=== PATIENT | male | born 1950 | race Caucasian/White ===

== ENCOUNTER 2018-05-19 13:49 | Inpatient (IN) | payer MEDICARE, OTHER ==
[2018-05-19 14:11] LABS: % BASOPHILS 0.4 % (0.0-2.0); % EOSINOPHILS 0.4 % (0.0-5.0); % LYMPHOCYTES 14.7 % (20.0-50.0); % NEUTROPHILS 75.5 % (40.0-80.0); HEMATOCRIT 45.1 % (41.0-60); HEMOGLOBIN 14.9 gm/dL (12-16); LYMPHOCYTE ABSOLUTE 1.4 Th/cmm (1.5-3.0); MEAN CELL VOLUME 91.5 fl (80-99); MEAN CORPUSCULAR HEMOGLOBIN 30.3 pg (27.0-31.0); MEAN CORPUSCULAR HGB CONC 33.1 pg (28.0-36.0); MEAN PLATELET VOLUME 7.5 fl; MONOCYTE ABSOLUTE 0.9 Th/cmm (0.3-1.0); NEUTROPHILE ABSOLUTE 7.5 Th/cmm (1.8-8.0); PLATELET COUNT 332 Th/cmm (150-400); RED BLOOD COUNT 4.93 Mil/cmm (3.80-5.80); WHITE BLOOD COUNT 9.8 Th/cmm (4.8-10.8)
[2018-05-19 14:24] LABS: URINE SOURCE CLEAN C
[2018-05-19 14:26] LABS: URINE BILIRUBIN SMALL (NEGATIVE); URINE BLOOD SMALL (NEGATIVE); URINE GLUCOSE (UA) NEGATIVE (NEGATIVE); URINE KETONE NEGATIVE (NEGATIVE); URINE LEUKOCYTE ESTERASE TRACE (NEGATIVE); URINE MICROSCOPIC INDICATED? YES; URINE NITRATE NEGATIVE (NEGATIVE); URINE PH 5.5 (4.6 - 8.0); URINE PROTEIN 100 mg/dL (NEGATIVE); URINE UROBILINOGEN 0.2 E.U./dL (0.2 - 1.0)
[2018-05-19 14:28] LABS: URINE CLARITY HAZY (CLEAR); URINE COLOR YELLOW
[2018-05-19 14:34] LABS: URINE EPITHELIAL CELLS FEW /lpf (FEW)
[2018-05-19 14:35] LABS: URINE BACTERIA 3+ /hpf (NONE SEEN); URINE COARSE GRANULAR CAST 0-2 /lpf (NONE SEEN); URINE FINE GRANULAR CAST 0-2 /lpf (NONE SEEN)
[2018-05-19 14:36] LABS: ALB/GLOB RATIO 1.5 (1.0-1.8); ALBUMIN 4.4 gm/dL (4.2-5.5); ALKALINE PHOSPHATASE 49 U/L (34-104); ANION GAP 15.7 (7.0-16.0); BILIRUBIN,TOTAL 0.8 mg/dL (0.3-1.0); BUN - UREA NITROGEN 18 mg/dL (7-25); CALCIUM SERUM 9.5 mg/dL (8.6-10.3); CHLORIDE 104 mEq/L (98-107); CREATININE - SERUM 1.2 mg/dL (0.7-1.3); GFR AFRICAN-AMERICAN > 60.0 ml/min (>90); GFR NON AFRICAN-AMERICAN > 60.0 ml/min; GLUCOSE 165 mg/dL (70-105); MAGNESIUM 2.1 mg/dL (1.9-2.7); PHOSPHOROUS 2.3 mg/dL (2.5-5.0); POTASSIUM SERUM 3.7 mEq/L (3.5-5.1); SGOT 16 U/L (13-39); SGPT/ALT 10 U/L (7-52); SODIUM SERUM 138 mEq/L (136-145); TOTAL PROTEIN,SERUM 7.4 gm/dL (6.0-8.3)
[2018-05-19] MEDS ORDERED: Lactated Ringer 1,000 ML IV ONE (14:36)
[2018-05-19] MEDS ORDERED: Sodium Phos / Potassium Phos 1.25 GM PACK PO ONE (14:44)
[2018-05-19 14:50] LABS: AMPHETAMINE URINE NEGATIVE (NEGATIVE); BARBITURATES URINE NEGATIVE (NEGATIVE); BENZODIAZEPINES QUAL URINE NEGATIVE (NEGATIVE); CANNABINOID THC NEGATIVE (NEGATIVE); COCAINE METABOLITE QUAL URINE NEGATIVE (NEGATIVE); METHADONE URINE NEGATIVE (NEGATIVE); METHAMPHETAMINES QUAL URINE NEGATIVE (NEGATIVE); OPIATES (MORPHINE) QUAL. URINE NEGATIVE (NEGATIVE); PHENCYCLIDINE (PCP) URINE NEGATIVE (NEGATIVE); TRICYCLICS (TCA) QUAL. URINE NEGATIVE (NEGATIVE)
[2018-05-19] MEDS ORDERED: Piperacillin Sodium/Tazobact 3.375 gm Vial IV ONE (15:16)
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
[2018-05-19 18:42] VITALS: BP 121/65
[2018-05-19] MEDS ORDERED: Magnesium Hydroxide (MOM) 30 mL UDC PO PRN (18:42)
[2018-05-19] MEDS ORDERED: Maalox 30 mL Cup PO PRN (18:42)
[2018-05-19 19:03] LABS: CHOLESTEROL 186 mg/dL (<200); HDL -HIGH DENSITY LIPOPROTEIN 57 mg/dL (23-92); TRIGLYCERIDES 65 mg/dL (<150)
--- NOTE | 2018-05-20 08:34 | History and Physical ---
History of Present Illness - HPI Chief Complaint: Gravelly disable HPI: Patient was put in 5150 by police due to be gravelly disable. Vital Signs: Last Vital Signs Temp 97.8 F 05/20/18 06:44 Pulse 77 05/20/18 06:44 Resp 19 05/20/18 06:44 BP 117/71 05/20/18 06:44 Pulse Ox 97 05/20/18 06:44 Past Medical History Cardiovascular: Report: No Pertinent Hx Pulmonary: Report: No Pertinent Hx SPECIAL EDUCATION DIRECTOR: Report: No Pertinent Hx GI: Report: No Pertinent Hx Psych: Report: No Pertinent Hx Musculoskeletal: Report: No Pertinent Hx Rheumatologic: Report: No pertinent Hx Infectious Disease: Report: No Pertinent Hx Renal/: Report: No Pertinent Hx Endocrine: Report: No Pertinent Hx Dermatology: Report: No Pertinent Hx - Past Surgical History Past Surgical History: No pertinent Hx Family Medical History - Family Member Mother History Unknown: Yes Social History Smoke: No Alcohol: None Drugs: None Lives: Alone Domestic Violence: Negative - Medications Home Medications: Home Medication Medication Instructions Recorded Type Cyanocobalamin (Vitamin B-12) SL DAILY 05/20/18 History [B-12] Memantine HCl [Namenda Xr] 7 mg PO DAILY 05/20/18 History Mirtazapine [Remeron] PO HS 05/20/18 History - Allergies Allergies/Adverse Reactions: Allergies Allergy/AdvReac Type Severity Reaction Status Date / Time No Known Allergies Allergy Verified 05/19/18 14:02 Review of Systems - Review of Systems Constitutional: Report: No Significant Eyes: Report: No Significant ENT: Report: No Significant Respiratory: Report: No Significant Cardiovascular: Report: No Significant Gastrointestinal: Report: No Significant Genitourinary: Report: No Significant Musculoskeletal: Report: No Significant Skin: Report: No Significant Neurological: Report: No Significant Physical Exam - Physical Exam HEENT: Report: Ears Nose Throat within normal limits Neck: Report: Within normal limits Cardiovascular Systems: Report: Regular, Rate and Rhythm Respiratory: Report: Breath Sounds are within normal limits Abdomen: Report: Non-tender to palpation Back: Report: Inspection of back is within normal limits. Extremities: Report: Non-tender to palpation. Skin: Report: Color of skin is within normal limits, Warm Neuro/Psych: Report: Mood affect is within normal limits - Lab Results All Lab Results last 24 hours: Laboratory Results - last 24 hr 11/19/18 11/19/18 11/19/18 13:30 14:06 14:06 WBC 9.8 RBC 4.93 Hgb 14.9 Hct 45.1 MCV 91.5 MCH 30.3 MCHC Differential 33.1 RDW 13.0 Plt Count 332 MPV 7.5 Neutrophils % 75.5 Lymphocytes % 14.7 L Monocytes % 9.0 Eosinophils % 0.4 Basophils % 0.4 Sodium 138 Potassium 3.7 Chloride 104 Carbon Dioxide 22.0 Anion Gap 15.7 BUN 18 Creatinine 1.2 Est GFR ( Amer) > 60.0 Est GFR (Non-Af Amer) > 60.0 BUN/Creatinine Ratio 15.0 Glucose 165 H Calcium 9.5 Phosphorus 2.3 L Magnesium 2.1 Total Bilirubin 0.8 AST 16 ALT 10 Alkaline Phosphatase 49 Troponin I Total Protein 7.4 Albumin 4.4 Globulin 3.0 Albumin/Globulin Ratio 1.5 Triglycerides Cholesterol LDL Cholesterol Direct HDL Cholesterol TSH Urine Source Urine Color Urine Clarity Urine pH Ur Specific [place] Urine Protein Urine Glucose (UA) Urine Ketones Urine Blood Urine Nitrate Urine Bilirubin Urine Urobilinogen Ur Leukocyte Esterase Urine RBC Urine WBC Ur Epithelial Cells Urine Bacteria Fine Granular Casts Coarse Granular Casts Urine Opiates Screen NEGATIVE Urine Methadone Screen NEGATIVE Ur Barbiturates Screen NEGATIVE Ur Tricyclics Screen NEGATIVE Ur Phencyclidine Scrn NEGATIVE Amphetamines Screen NEGATIVE U Methamphetamines Scrn NEGATIVE U Benzodiazepines Scrn NEGATIVE U Cocaine Metab Screen NEGATIVE U Cannabinoids Screen NEGATIVE Ethyl Alcohol < 10 05/19/18 05/19/18 05/19/18 14:06 14:06 14:06 WBC RBC Hgb Hct MCV MCH MCHC Differential RDW Plt Count MPV Neutrophils % Lymphocytes % Monocytes % Eosinophils % Basophils % Sodium Potassium Chloride Carbon Dioxide Anion Gap BUN Creatinine Est GFR ( Amer) Est GFR (Non-Af Amer) BUN/Creatinine Ratio Glucose Calcium Phosphorus Magnesium Total Bilirubin AST ALT Alkaline Phosphatase Troponin I 0.03 Total Protein Albumin Globulin Albumin/Globulin Ratio Triglycerides 65 Cholesterol 186 LDL Cholesterol Direct 140 HDL Cholesterol 57 TSH 1.79 Urine Source Urine Color Urine Clarity Urine pH Ur Specific [place] Urine Protein Urine Glucose (UA) Urine Ketones Urine Blood Urine Nitrate Urine Bilirubin Urine Urobilinogen Ur Leukocyte Esterase Urine RBC Urine WBC Ur Epithelial Cells Urine Bacteria Fine Granular Casts Coarse Granular Casts Urine Opiates Screen Urine Methadone Screen Ur Barbiturates Screen Ur Tricyclics Screen Ur Phencyclidine Scrn Amphetamines Screen U Methamphetamines Scrn U Benzodiazepines Scrn U Cocaine Metab Screen U Cannabinoids Screen Ethyl Alcohol 05/19/18 14:15 WBC RBC Hgb Hct MCV MCH MCHC Differential RDW Plt Count MPV Neutrophils % Lymphocytes % Monocytes % Eosinophils % Basophils % Sodium Potassium Chloride Carbon Dioxide Anion Gap BUN Creatinine Est GFR ( Amer) Est GFR (Non-Af Amer) BUN/Creatinine Ratio Glucose Calcium Phosphorus Magnesium Total Bilirubin AST ALT Alkaline Phosphatase Troponin I Total Protein Albumin Globulin Albumin/Globulin Ratio Triglycerides Cholesterol LDL Cholesterol Direct HDL Cholesterol TSH Urine Source CLEAN C Urine Color YELLOW Urine Clarity HAZY Urine pH 5.5 Ur Specific [place] >= 1.030 Urine Protein 100 H Urine Glucose (UA) NEGATIVE Urine Ketones NEGATIVE Urine Blood SMALL H Urine Nitrate NEGATIVE Urine Bilirubin SMALL H Urine Urobilinogen 0.2 Ur Leukocyte Esterase TRACE H Urine RBC 5-10 H Urine WBC 10-25 H Ur Epithelial Cells FEW Urine Bacteria 3+ H Fine Granular Casts 0-2 H Coarse Granular Casts 0-2 H Urine Opiates Screen Urine Methadone Screen Ur Barbiturates Screen Ur Tricyclics Screen Ur Phencyclidine Scrn Amphetamines Screen U Methamphetamines Scrn U Benzodiazepines Scrn U Cocaine Metab Screen U Cannabinoids Screen Ethyl Alcohol - Assessment Assessment: Current Active Problems Problem Status Onset 51/50 STATUS Acute Patient is awake, alert, calm, in no acute distress. 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 - Plan Plan: Patient is follow by Psychiatry. Bactrim is started for UTI.
[2018-05-20] MEDS: Sulfamethoxazole/TMP 800/160mg Tab PO SCH ×2 (09:24→16:35)
[2018-05-20] MEDS: Multivitamin Tab PO SCH (09:24)
[2018-05-21] MEDS: Multivitamin Tab PO SCH (08:38)
[2018-05-21] MEDS: Sulfamethoxazole/TMP 800/160mg Tab PO SCH ×2 (08:38→16:50)
--- NOTE | 2018-05-21 08:55 | General Progress Note ---
Subjective - Review of Systems Service Date: 05/21/18 Subjective: I am fine Objective - Results Result Diagrams: 05/19/18 14:06 05/19/18 14:06 Recent Labs: Laboratory Last Values WBC 9.8 Th/cmm (4.8-10.8) 05/19/18 14:06 RBC 4.93 Mil/cmm (3.80-5.80) 05/19/18 14:06 Hgb 14.9 gm/dL (12-16) 05/19/18 14:06 Hct 45.1 % (41.0-60) 05/19/18 14:06 MCV 91.5 fl (80-99) 05/19/18 14:06 MCH 30.3 pg (27.0-31.0) 05/19/18 14:06 MCHC Differential 33.1 pg (28.0-36.0) 05/19/18 14:06 RDW 13.0 % (11.5-20.0) 05/19/18 14:06 Plt Count 332 Th/cmm (150-400) 05/19/18 14:06 MPV 7.5 fl 05/19/18 14:06 Neutrophils % 75.5 % (40.0-80.0) 05/19/18 14:06 Lymphocytes % 14.7 % (20.0-50.0) L 05/19/18 14:06 Monocytes % 9.0 % (2.0-10.0) 05/19/18 14:06 Eosinophils % 0.4 % (0.0-5.0) 05/19/18 14:06 Basophils % 0.4 % (0.0-2.0) 05/19/18 14:06 Sodium 138 mEq/L (136-145) 05/19/18 14:06 Potassium 3.7 mEq/L (3.5-5.1) 05/19/18 14:06 Chloride 104 mEq/L (98-107) 05/19/18 14:06 Carbon Dioxide 22.0 mEq/L (21.0-31.0) 05/19/18 14:06 Anion Gap 15.7 (7.0-16.0) 05/19/18 14:06 BUN 18 mg/dL (7-25) 05/19/18 14:06 Creatinine 1.2 mg/dL (0.7-1.3) 05/19/18 14:06 Est GFR ( Amer) > 60.0 ml/min (>90) 05/19/18 14:06 Est GFR (Non-Af Amer) > 60.0 ml/min 05/19/18 14:06 BUN/Creatinine Ratio 15.0 05/19/18 14:06 Glucose 165 mg/dL (70-105) H 05/19/18 14:06 Calcium 9.5 mg/dL (8.6-10.3) 05/19/18 14:06 Phosphorus 2.3 mg/dL (2.5-5.0) L 05/19/18 14:06 Magnesium 2.1 mg/dL (1.9-2.7) 05/19/18 14:06 Total Bilirubin 0.8 mg/dL (0.3-1.0) 05/19/18 14:06 AST 16 U/L (13-39) 05/19/18 14:06 ALT 10 U/L (7-52) 05/19/18 14:06 Alkaline Phosphatase 49 U/L (34-104) 05/19/18 14:06 Troponin I 0.03 ng/mL (0.01-0.05) 05/19/18 14:06 Total Protein 7.4 gm/dL (6.0-8.3) 05/19/18 14:06 Albumin 4.4 gm/dL (4.2-5.5) 05/19/18 14:06 Globulin 3.0 gm/dL 05/19/18 14:06 Albumin/Globulin Ratio 1.5 (1.0-1.8) 05/19/18 14:06 Triglycerides 65 mg/dL (<150) 05/19/18 14:06 Cholesterol 186 mg/dL (<200) 05/19/18 14:06 LDL Cholesterol Direct 140 mg/dL (75-193) 05/19/18 14:06 HDL Cholesterol 57 mg/dL (23-92) 05/19/18 14:06 TSH 1.79 uIU/ml (0.34-5.60) 05/19/18 14:06 Urine Source CLEAN C 05/19/18 14:15 Urine Color YELLOW 05/19/18 14:15 Urine Clarity HAZY (CLEAR) 05/19/18 14:15 Urine pH 5.5 (4.6 - 8.0) 05/19/18 14:15 Ur Specific [place] >= 1.030 (1.005-1.030) 05/19/18 14:15 Urine Protein 100 mg/dL (NEGATIVE) H 05/19/18 14:15 Urine Glucose (UA) NEGATIVE mg/dL (NEGATIVE) 05/19/18 14:15 Urine Ketones NEGATIVE mg/dL (NEGATIVE) 05/19/18 14:15 Urine Blood SMALL (NEGATIVE) H 05/19/18 14:15 Urine Nitrate NEGATIVE (NEGATIVE) 05/19/18 14:15 Urine Bilirubin SMALL (NEGATIVE) H 05/19/18 14:15 Urine Urobilinogen 0.2 E.U./dL (0.2 - 1.0) 05/19/18 14:15 Ur Leukocyte Esterase TRACE (NEGATIVE) H 05/19/18 14:15 Urine RBC 5-10 /hpf (0-5) H 05/19/18 14:15 Urine WBC 10-25 /hpf (0-5) H 05/19/18 14:15 Ur Epithelial Cells FEW /lpf (FEW) 05/19/18 14:15 Urine Bacteria 3+ /hpf (NONE SEEN) H 05/19/18 14:15 Fine Granular Casts 0-2 /lpf (NONE SEEN) H 05/19/18 14:15 Coarse Granular Casts 0-2 /lpf (NONE SEEN) H 05/19/18 14:15 Urine Opiates Screen NEGATIVE (NEGATIVE) 05/19/18 13:30 Urine Methadone Screen NEGATIVE (NEGATIVE) 05/19/18 13:30 Ur Barbiturates Screen NEGATIVE (NEGATIVE) 05/19/18 13:30 Ur Tricyclics Screen NEGATIVE (NEGATIVE) 05/19/18 13:30 Ur Phencyclidine Scrn NEGATIVE (NEGATIVE) 05/19/18 13:30 Amphetamines Screen NEGATIVE (NEGATIVE) 05/19/18 13:30 U Methamphetamines Scrn NEGATIVE (NEGATIVE) 05/19/18 13:30 U Benzodiazepines Scrn NEGATIVE (NEGATIVE) 05/19/18 13:30 U Cocaine Metab Screen NEGATIVE (NEGATIVE) 05/19/18 13:30 U Cannabinoids Screen NEGATIVE (NEGATIVE) 05/19/18 13:30 Ethyl Alcohol < 10 mg/dL (0-10) 05/19/18 14:06 - Physical Exam Vitals and I&O: Vital Signs Temp 98.2 F 05/21/18 06:28 Pulse 77 05/21/18 06:28 Resp 20 05/21/18 06:28 BP 122/62 05/21/18 06:28 Pulse Ox 98 05/21/18 06:28 Intake & Output 05/20/18 05/21/18 05/21/18 18:59 06:59 18:59 Intake Total 1200 420 Balance 1200 420 Weight (lbs) 59.421 kg Intake: Oral 1200 420 Other: # Voids 4 2 # Bowel Movements 1 0 Weight Source Bedscale Active Medications: Current Medications Acetaminophen (Tylenol) 650 mg PO Q4HR PRN PRN Reason: Mild Pain 1-3 / Temp above 100 Stop: 07/18/18 18:41 Al Hydrox/Mg Hydrox/Simethicone (Maalox) 30 ml PO Q4HR PRN PRN Reason: GI DISTRESS Stop: 07/18/18 18:41 Lorazepam (Ativan) 0.5 mg PO Q4HR PRN; Protocol PRN Reason: Agitation Stop: 06/18/18 18:41 Magnesium Hydroxide (Milk Of Magnesia) 30 ml PO HS PRN PRN Reason: Constipation Mirtazapine (Remeron) 15 mg PO HS KOMAL; Protocol Stop: 07/19/18 20:59 Last Admin: 05/20/18 21:17 Dose: Not Given Multivitamins/Vitamin C (Theragran) 1 tab PO DAILY KOMAL Stop: 07/19/18 08:59 Last Admin: 05/21/18 08:38 Dose: 1 tab Trimethoprim/Sulfamethoxazole (Bactrim Ds) 1 tab PO BID KOMAL Stop: 07/19/18 08:59 Last Admin: 05/21/18 08:38 Dose: 1 tab Zolpidem Tartrate (Ambien) 5 mg PO HS PRN PRN Reason: Insomnia Stop: 07/18/18 18:41 General: Alert, No acute distress HEENT: Atraumatic Neck: Supple Cardiovascular: Regular rate Abdomen: Bowel sounds Extremities: Other (No edema) Neurological: Other (Non ambulatory) Skin: Other Psych/Mental Status: Other (Confused) Assessment/Plan - Problem List Patient Problems: All Active Problems 51/50 STATUS (Acute) - Assessment Assessment: Current Active Problems Problem Status Onset 5150 STATUS Acute Patient is awake, alert, calm, in no acute distress. 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 - Plan Plan: Patient is follow by Psychiatry. Bactrim is started for UTI.
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
--- NOTE | 2018-05-21 21:26 | Progress Notes ---
DATE: 05/21/2018 SUBJECTIVE: Chart reviewed and the patient interviewed. Also, discussed the patient's condition with the staff and reviewed records and labs. The patient is still in irritable and angry mood. The patient also is still hyper talkative. He also is still exhibiting manic behavior and he is still easily agitated and easily irritable. Also, has some grandiose delusions. The patient also is resisting care and is still noncompliant with his medications. I spoke with the patient's who indicated that she has power of real estate attorney and indicated that the patient cannot return to home and that the patient after stabilization to return to nursing to [place]. She also said that the patient has been noncompliance with taking his medications. ASSESSMENT: The patient is still manicky and is still in irritable mood. TREATMENT PLAN: We will continue to monitor his behavior and condition closely. Also, I spoke with the patient's who indicated that she is not opposing to have a long-acting injectable if the patient agreed and planning to discuss that with the patient and might be a good idea if he will take long-acting injectable. JOB# [id number]
[2018-05-22] MEDS: Multivitamin Tab PO SCH (08:15)
[2018-05-22] MEDS: Sulfamethoxazole/TMP 800/160mg Tab PO SCH ×2 (08:15→17:04)
--- NOTE | 2018-05-22 11:52 | Consultation ---
DATE OF CONSULTATION: 05/21/2018 REFERRING PHYSICIAN: Artemio Garcia MD TYPE OF CONSULTATION: Psychology. HISTORY OF PRESENT ILLNESS: The patient is a 68-year-old male. The following is by review of the medical record as well as by the patient's self-report. The patient is being admitted on a 5150 hold written by the police for danger to others and gravely disabled. According to record review, the patient reported that he had not eaten or slept in 2 days. The report also indicates that the patient had verbalized that he was going to hit the officers on the head. Upon interview, the patient presents as angry and delusional. The patient is going off on a tangent and stating something about his and that he is going to divorce her. The patient continued to be restless with pressured and rambling speech. The patient would not answer questions about experiencing suicidal or homicidal ideation, plan or intention. The patient is at risk for behavioral problems on the unit. PAST MEDICAL HISTORY: Please see history and physical by Dr. Chavez. PAST PSYCHIATRIC HISTORY: Records are unavailable at the time of this clinical interview. Details are unknown. The current psychiatric evaluation indicates a provisional diagnosis of bipolar disorder. It is unknown whether the patient has previous psychiatric hospitalizations or is under the care of a psychiatrist or psychologist. SUBSTANCE ABUSE HISTORY: The patient denied any history of alcohol, tobacco or illicit drug use; however, records indicate at the time of admission, the patient may have been drinking wine. PSYCHOSOCIAL HISTORY: The patient states that he is and has 5 children. 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 The patient denied any current legal problems. The patient denied any history of physical or sexual abuse. The patient did not answer questions about scientologist affiliation or specific educational history. The patient did not answer questions about involvement by family or friends that are involved in his care. MENTAL STATUS EXAMINATION: The patient appears to be his stated age. The patient's attitude is guarded and suspicious. Eye contact is poor. The patient appears to be disheveled. Speech is pressured and rambling. Mood is irritable and angry. Affect is mood congruent, broad and animated. Thought process shows to be tangential with a flight of ideas. The patient denied any auditory or visual hallucinations. The patient denied any suicidal or homicidal ideation, plan or intention. The patient's behavior has been difficult to redirect on the unit. Impulse control is inadequate. Concentration is poor due to interference with disorganized thought and loose associations. The patient did not participate in the memory assessment. Recent and remote memories need further evaluation. The patient did not participate in the interpretation of proverbs. Sensorium is alert and oriented to self and place. Insight is poor. Judgment is poor. DIAGNOSTIC IMPRESSION: AXIS I: Bipolar disorder, mixed, severe with psychotic symptoms. AXIS II: Deferred. AXIS III: Per Dr. Chavez. TREATMENT PLAN: The patient is being seen by Dr. Garcia as well as by Dr. Hernández for psychiatric evaluation. The patients' psychiatry service is transferred to Dr. Hernández. The orders indicate instructions for individual psychotherapy from both physicians. Therefore, we will provide this service. We will provide reality, orientation, differentiation and integration. We will provide de-escalation and limit setting. We will provide stress management to increase the patient's frustration tolerance. We will provide motivational enhancement for the patient to become compliant and stay compliant with all aspects of his care and treatment. We will encourage the patient to verbally contract for safety, including no harm to self and no harm to others. We will provide motivational enhancement for the patient to be compliant with psychotropic medications. We will encourage the patient to be able to demonstrate emotional and self-regulation prior to discharge. We will provide coping strategies for phase of life issues as well as for chronic severe mental illness. We will provide immediate intervention of anger management to de-escalate the patient and reflect appropriate responses to staff direction as well as the patient's treatment plan. Please see the psychiatric evaluation by Dr. Hernández for the patient's current medication protocol. We recommend outpatient treatment, follow up with both a psychiatrist and psychologist upon discharge. Placement is also being considered and will be discussed with the piano case maker and attending physician. Thank you, Dr. Garcia and Dr. Hernández, for this consult and the opportunity to participate with you in this patient's care. JOB# [id number] JAYDEN
--- NOTE | 2018-05-22 17:00 | General Progress Note ---
Subjective - Review of Systems Service Date: 05/22/18 Subjective: I am fine Objective - Results Result Diagrams: 05/19/18 14:06 05/19/18 14:06 Recent Labs: Laboratory Last Values WBC 9.8 Th/cmm (4.8-10.8) 05/19/18 14:06 RBC 4.93 Mil/cmm (3.80-5.80) 05/19/18 14:06 Hgb 14.9 gm/dL (12-16) 05/19/18 14:06 Hct 45.1 % (41.0-60) 05/19/18 14:06 MCV 91.5 fl (80-99) 05/19/18 14:06 MCH 30.3 pg (27.0-31.0) 05/19/18 14:06 MCHC Differential 33.1 pg (28.0-36.0) 05/19/18 14:06 RDW 13.0 % (11.5-20.0) 05/19/18 14:06 Plt Count 332 Th/cmm (150-400) 05/19/18 14:06 MPV 7.5 fl 05/19/18 14:06 Neutrophils % 75.5 % (40.0-80.0) 05/19/18 14:06 Lymphocytes % 14.7 % (20.0-50.0) L 05/19/18 14:06 Monocytes % 9.0 % (2.0-10.0) 05/19/18 14:06 Eosinophils % 0.4 % (0.0-5.0) 05/19/18 14:06 Basophils % 0.4 % (0.0-2.0) 05/19/18 14:06 Sodium 138 mEq/L (136-145) 05/19/18 14:06 Potassium 3.7 mEq/L (3.5-5.1) 05/19/18 14:06 Chloride 104 mEq/L (98-107) 05/19/18 14:06 Carbon Dioxide 22.0 mEq/L (21.0-31.0) 05/19/18 14:06 Anion Gap 15.7 (7.0-16.0) 05/19/18 14:06 BUN 18 mg/dL (7-25) 05/19/18 14:06 Creatinine 1.2 mg/dL (0.7-1.3) 05/19/18 14:06 Est GFR ( Amer) > 60.0 ml/min (>90) 05/19/18 14:06 Est GFR (Non-Af Amer) > 60.0 ml/min 05/19/18 14:06 BUN/Creatinine Ratio 15.0 05/19/18 14:06 Glucose 165 mg/dL (70-105) H 05/19/18 14:06 Calcium 9.5 mg/dL (8.6-10.3) 05/19/18 14:06 Phosphorus 2.3 mg/dL (2.5-5.0) L 05/19/18 14:06 Magnesium 2.1 mg/dL (1.9-2.7) 05/19/18 14:06 Total Bilirubin 0.8 mg/dL (0.3-1.0) 05/19/18 14:06 AST 16 U/L (13-39) 05/19/18 14:06 ALT 10 U/L (7-52) 05/19/18 14:06 Alkaline Phosphatase 49 U/L (34-104) 05/19/18 14:06 Troponin I 0.03 ng/mL (0.01-0.05) 05/19/18 14:06 Total Protein 7.4 gm/dL (6.0-8.3) 05/19/18 14:06 Albumin 4.4 gm/dL (4.2-5.5) 05/19/18 14:06 Globulin 3.0 gm/dL 05/19/18 14:06 Albumin/Globulin Ratio 1.5 (1.0-1.8) 05/19/18 14:06 Triglycerides 65 mg/dL (<150) 05/19/18 14:06 Cholesterol 186 mg/dL (<200) 05/19/18 14:06 LDL Cholesterol Direct 140 mg/dL (75-193) 05/19/18 14:06 HDL Cholesterol 57 mg/dL (23-92) 05/19/18 14:06 TSH 1.79 uIU/ml (0.34-5.60) 05/19/18 14:06 Urine Source CLEAN C 05/19/18 14:15 Urine Color YELLOW 05/19/18 14:15 Urine Clarity HAZY (CLEAR) 05/19/18 14:15 Urine pH 5.5 (4.6 - 8.0) 05/19/18 14:15 Ur Specific [place] >= 1.030 (1.005-1.030) 05/19/18 14:15 Urine Protein 100 mg/dL (NEGATIVE) H 05/19/18 14:15 Urine Glucose (UA) NEGATIVE mg/dL (NEGATIVE) 05/19/18 14:15 Urine Ketones NEGATIVE mg/dL (NEGATIVE) 05/19/18 14:15 Urine Blood SMALL (NEGATIVE) H 05/19/18 14:15 Urine Nitrate NEGATIVE (NEGATIVE) 05/19/18 14:15 Urine Bilirubin SMALL (NEGATIVE) H 05/19/18 14:15 Urine Urobilinogen 0.2 E.U./dL (0.2 - 1.0) 05/19/18 14:15 Ur Leukocyte Esterase TRACE (NEGATIVE) H 05/19/18 14:15 Urine RBC 5-10 /hpf (0-5) H 05/19/18 14:15 Urine WBC 10-25 /hpf (0-5) H 05/19/18 14:15 Ur Epithelial Cells FEW /lpf (FEW) 05/19/18 14:15 Urine Bacteria 3+ /hpf (NONE SEEN) H 05/19/18 14:15 Fine Granular Casts 0-2 /lpf (NONE SEEN) H 05/19/18 14:15 Coarse Granular Casts 0-2 /lpf (NONE SEEN) H 05/19/18 14:15 Urine Opiates Screen NEGATIVE (NEGATIVE) 05/19/18 13:30 Urine Methadone Screen NEGATIVE (NEGATIVE) 05/19/18 13:30 Ur Barbiturates Screen NEGATIVE (NEGATIVE) 05/19/18 13:30 Ur Tricyclics Screen NEGATIVE (NEGATIVE) 05/19/18 13:30 Ur Phencyclidine Scrn NEGATIVE (NEGATIVE) 05/19/18 13:30 Amphetamines Screen NEGATIVE (NEGATIVE) 05/19/18 13:30 U Methamphetamines Scrn NEGATIVE (NEGATIVE) 05/19/18 13:30 U Benzodiazepines Scrn NEGATIVE (NEGATIVE) 05/19/18 13:30 U Cocaine Metab Screen NEGATIVE (NEGATIVE) 05/19/18 13:30 U Cannabinoids Screen NEGATIVE (NEGATIVE) 05/19/18 13:30 Ethyl Alcohol < 10 mg/dL (0-10) 05/19/18 14:06 - Physical Exam Vitals and I&O: Vital Signs Temp 97.4 F 05/22/18 14:00 Pulse 63 05/22/18 14:00 Resp 20 05/22/18 14:00 BP 108/69 05/22/18 14:00 Pulse Ox 99 05/22/18 14:00 Intake & Output 05/21/18 05/22/18 05/22/18 18:59 06:59 18:59 Intake Total 1100 Balance 1100 Intake: Oral 1100 Other: # Voids 4 # Bowel Movements 1 Active Medications: Current Medications Acetaminophen (Tylenol) 650 mg PO Q4HR PRN PRN Reason: Mild Pain 1-3 / Temp above 100 Stop: 07/18/18 18:41 Al Hydrox/Mg Hydrox/Simethicone (Maalox) 30 ml PO Q4HR PRN PRN Reason: GI DISTRESS Stop: 07/18/18 18:41 Aripiprazole (Abilify) 5 mg PO DAILY KOMAL; Protocol Stop: 07/21/18 08:59 Last Admin: 05/22/18 09:39 Dose: Not Given Lorazepam (Ativan) 0.5 mg PO Q4HR PRN; Protocol PRN Reason: Agitation Stop: 06/18/18 18:41 Magnesium Hydroxide (Milk Of Magnesia) 30 ml PO HS PRN PRN Reason: Constipation Mirtazapine (Remeron) 15 mg PO HS KOMAL; Protocol Stop: 07/19/18 20:59 Last Admin: 05/21/18 20:04 Dose: Not Given Multivitamins/Vitamin C (Theragran) 1 tab PO DAILY KOMAL Stop: 07/19/18 08:59 Last Admin: 05/22/18 08:15 Dose: 1 tab Trimethoprim/Sulfamethoxazole (Bactrim Ds) 1 tab PO BID KOMAL Stop: 07/19/18 08:59 Last Admin: 05/22/18 08:15 Dose: 1 tab Zolpidem Tartrate (Ambien) 5 mg PO HS PRN PRN Reason: Insomnia Stop: 07/18/18 18:41 General: Alert, No acute distress HEENT: Atraumatic Neck: Supple Cardiovascular: Regular rate Abdomen: Bowel sounds Extremities: Other (No edema) Neurological: Other (Non ambulatory) Skin: Other Psych/Mental Status: Other (Confused) Assessment/Plan - Problem List Patient Problems: All Active Problems 51/50 STATUS (Acute) - Assessment Assessment: Current Active Problems Problem Status Onset 51/50 STATUS Acute Patient is awake, alert, calm, in no acute distress. 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 - Plan Plan: Patient is follow by Psychiatry. Bactrim is started for UTI.
--- NOTE | 2018-05-22 20:44 | Progress Notes ---
DATE: 05/22/2018 SUBJECTIVE: Chart reviewed and the patient interviewed. Also discussed the patient's condition with the staff and reviewed records and labs. The patient continued to be in angry and irritable mood and he is still suspicious and paranoid. The patient also refused to cooperate or sign any papers to take medications "unless my children are here." The patient also still insisted that he is living in his own place and he is not going to [facility] and "I just went to [place] for breakfast with my , but I never stayed there." The patient also is still refusing to take medications and in denial of any psychiatric problems. Otherwise, the patient is showing no major behavior problems on the unit. I spoke with the patient's yesterday and the patient's insists that he should go to [place] and that she has power of staff nuclear medicine technologist to do so. The patient is refusing medications and I am not sure if the patient's has power of staff nuclear medicine technologist to enforce medications or not. At the same time, we will start the patient on Abilify. Hopefully, if he agrees to take it, then we can switch it later on to Abilify Maintena. At the same time, we will continue to monitor behavior and continue to work on treatment and discharge plans. JOB# [id number]
[2018-05-23] MEDS: Sulfamethoxazole/TMP 800/160mg Tab PO SCH ×2 (10:16→17:02)
[2018-05-23] MEDS: Multivitamin Tab PO SCH (10:16)
--- NOTE | 2018-05-24 01:22 | Progress Notes ---
DATE: SUBJECTIVE: Chart reviewed and the patient interviewed. Also discussed the patient's condition with the staff and reviewed records and labs. The patient's affect is brighter. The patient is angry for being in the hospital. The patient also still accuses his that she is the one who wants to get rid of him and that she is the one who wants to place him in [facility] in order to get rid of him. He in the unit is calm and easier to redirect him and easier to follow directions. Otherwise, the patient is compliant with taking also treatment, but he is still paranoid about taking medications. The patient also said that his took him to [place] with plan to have breakfast with him there, but she never informed him that he is going to stay there or to live there and that is why he was agitated and wanted to leave the facility. I spoke with patient's after my interview with him today and the patient's said that the patient when does not take his medications, he acted bizarre and he is in irritable and weird mood according to her and he is having difficulty with mood and gets easily agitated. He also mentions multiple incidences where the patient was out of control and has to be placed on a hold and he was taken to [facility]. ASSESSMENT: The patient is calm while in the hospital, but his is saying some incidences about his agitation when off medications. PLAN AND RECOMMENDATION: I discussed with the patient's treatment plan and patient's agreed to have a family meeting between the patient as well as his children who she mentioned that they are involved in his treatment and also the patient himself in order to decide what would be the next step in his treatment. At the same time, we will continue to monitor behavior and continue working on his irritability and followup. JOB# [id number]
[2018-05-24] MEDS: Multivitamin Tab PO SCH (09:04)
[2018-05-24] MEDS: Sulfamethoxazole/TMP 800/160mg Tab PO SCH ×2 (09:04→16:55)
--- NOTE | 2018-05-24 09:47 | General Progress Note ---
Subjective - Review of Systems Service Date: 05/24/18 Subjective: I am fine Objective - Results Result Diagrams: 05/19/18 14:06 05/19/18 14:06 Recent Labs: Laboratory Last Values WBC 9.8 Th/cmm (4.8-10.8) 05/19/18 14:06 RBC 4.93 Mil/cmm (3.80-5.80) 05/19/18 14:06 Hgb 14.9 gm/dL (12-16) 05/19/18 14:06 Hct 45.1 % (41.0-60) 05/19/18 14:06 MCV 91.5 fl (80-99) 05/19/18 14:06 MCH 30.3 pg (27.0-31.0) 05/19/18 14:06 MCHC Differential 33.1 pg (28.0-36.0) 05/19/18 14:06 RDW 13.0 % (11.5-20.0) 05/19/18 14:06 Plt Count 332 Th/cmm (150-400) 05/19/18 14:06 MPV 7.5 fl 05/19/18 14:06 Neutrophils % 75.5 % (40.0-80.0) 05/19/18 14:06 Lymphocytes % 14.7 % (20.0-50.0) L 05/19/18 14:06 Monocytes % 9.0 % (2.0-10.0) 05/19/18 14:06 Eosinophils % 0.4 % (0.0-5.0) 05/19/18 14:06 Basophils % 0.4 % (0.0-2.0) 05/19/18 14:06 Sodium 138 mEq/L (136-145) 05/19/18 14:06 Potassium 3.7 mEq/L (3.5-5.1) 05/19/18 14:06 Chloride 104 mEq/L (98-107) 05/19/18 14:06 Carbon Dioxide 22.0 mEq/L (21.0-31.0) 05/19/18 14:06 Anion Gap 15.7 (7.0-16.0) 05/19/18 14:06 BUN 18 mg/dL (7-25) 05/19/18 14:06 Creatinine 1.2 mg/dL (0.7-1.3) 05/19/18 14:06 Est GFR ( Amer) > 60.0 ml/min (>90) 05/19/18 14:06 Est GFR (Non-Af Amer) > 60.0 ml/min 05/19/18 14:06 BUN/Creatinine Ratio 15.0 05/19/18 14:06 Glucose 165 mg/dL (70-105) H 05/19/18 14:06 Calcium 9.5 mg/dL (8.6-10.3) 05/19/18 14:06 Phosphorus 2.3 mg/dL (2.5-5.0) L 05/19/18 14:06 Magnesium 2.1 mg/dL (1.9-2.7) 05/19/18 14:06 Total Bilirubin 0.8 mg/dL (0.3-1.0) 05/19/18 14:06 AST 16 U/L (13-39) 05/19/18 14:06 ALT 10 U/L (7-52) 05/19/18 14:06 Alkaline Phosphatase 49 U/L (34-104) 05/19/18 14:06 Troponin I 0.03 ng/mL (0.01-0.05) 05/19/18 14:06 Total Protein 7.4 gm/dL (6.0-8.3) 05/19/18 14:06 Albumin 4.4 gm/dL (4.2-5.5) 05/19/18 14:06 Globulin 3.0 gm/dL 05/19/18 14:06 Albumin/Globulin Ratio 1.5 (1.0-1.8) 05/19/18 14:06 Triglycerides 65 mg/dL (<150) 05/19/18 14:06 Cholesterol 186 mg/dL (<200) 05/19/18 14:06 LDL Cholesterol Direct 140 mg/dL (75-193) 05/19/18 14:06 HDL Cholesterol 57 mg/dL (23-92) 05/19/18 14:06 TSH 1.79 uIU/ml (0.34-5.60) 05/19/18 14:06 Urine Source CLEAN C 05/19/18 14:15 Urine Color YELLOW 05/19/18 14:15 Urine Clarity HAZY (CLEAR) 05/19/18 14:15 Urine pH 5.5 (4.6 - 8.0) 05/19/18 14:15 Ur Specific [place] >= 1.030 (1.005-1.030) 05/19/18 14:15 Urine Protein 100 mg/dL (NEGATIVE) H 05/19/18 14:15 Urine Glucose (UA) NEGATIVE mg/dL (NEGATIVE) 05/19/18 14:15 Urine Ketones NEGATIVE mg/dL (NEGATIVE) 05/19/18 14:15 Urine Blood SMALL (NEGATIVE) H 05/19/18 14:15 Urine Nitrate NEGATIVE (NEGATIVE) 05/19/18 14:15 Urine Bilirubin SMALL (NEGATIVE) H 05/19/18 14:15 Urine Urobilinogen 0.2 E.U./dL (0.2 - 1.0) 05/19/18 14:15 Ur Leukocyte Esterase TRACE (NEGATIVE) H 05/19/18 14:15 Urine RBC 5-10 /hpf (0-5) H 05/19/18 14:15 Urine WBC 10-25 /hpf (0-5) H 05/19/18 14:15 Ur Epithelial Cells FEW /lpf (FEW) 05/19/18 14:15 Urine Bacteria 3+ /hpf (NONE SEEN) H 05/19/18 14:15 Fine Granular Casts 0-2 /lpf (NONE SEEN) H 05/19/18 14:15 Coarse Granular Casts 0-2 /lpf (NONE SEEN) H 05/19/18 14:15 Urine Opiates Screen NEGATIVE (NEGATIVE) 05/19/18 13:30 Urine Methadone Screen NEGATIVE (NEGATIVE) 05/19/18 13:30 Ur Barbiturates Screen NEGATIVE (NEGATIVE) 05/19/18 13:30 Ur Tricyclics Screen NEGATIVE (NEGATIVE) 05/19/18 13:30 Ur Phencyclidine Scrn NEGATIVE (NEGATIVE) 05/19/18 13:30 Amphetamines Screen NEGATIVE (NEGATIVE) 05/19/18 13:30 U Methamphetamines Scrn NEGATIVE (NEGATIVE) 05/19/18 13:30 U Benzodiazepines Scrn NEGATIVE (NEGATIVE) 05/19/18 13:30 U Cocaine Metab Screen NEGATIVE (NEGATIVE) 05/19/18 13:30 U Cannabinoids Screen NEGATIVE (NEGATIVE) 05/19/18 13:30 Ethyl Alcohol < 10 mg/dL (0-10) 05/19/18 14:06 - Physical Exam Vitals and I&O: Vital Signs Temp 98.9 F 05/24/18 06:39 Pulse 66 05/24/18 06:39 Resp 20 05/24/18 06:39 BP 119/55 05/24/18 06:39 Pulse Ox 99 05/24/18 06:39 Intake & Output 05/23/18 05/24/18 05/24/18 18:59 06:59 18:59 Intake Total 1000 280 Balance 1000 280 Weight (lbs) 59.421 kg Intake: Oral 1000 280 Other: # Voids 4 3 # Bowel Movements 1 0 Weight Source Bedscale Active Medications: Current Medications Acetaminophen (Tylenol) 650 mg PO Q4HR PRN PRN Reason: Mild Pain 1-3 / Temp above 100 Stop: 07/18/18 18:41 Al Hydrox/Mg Hydrox/Simethicone (Maalox) 30 ml PO Q4HR PRN PRN Reason: GI DISTRESS Stop: 07/18/18 18:41 Aripiprazole (Abilify) 5 mg PO DAILY KOMAL; Protocol Stop: 07/21/18 08:59 Last Admin: 05/24/18 09:04 Dose: Not Given Lorazepam (Ativan) 0.5 mg PO Q4HR PRN; Protocol PRN Reason: Agitation Stop: 06/18/18 18:41 Magnesium Hydroxide (Milk Of Magnesia) 30 ml PO HS PRN PRN Reason: Constipation Mirtazapine (Remeron) 15 mg PO HS KOMAL; Protocol Stop: 07/19/18 20:59 Last Admin: 05/23/18 21:19 Dose: Not Given Multivitamins/Vitamin C (Theragran) 1 tab PO DAILY KOMAL Stop: 07/19/18 08:59 Last Admin: 05/24/18 09:04 Dose: 1 tab Trimethoprim/Sulfamethoxazole (Bactrim Ds) 1 tab PO BID KOMAL Stop: 07/19/18 08:59 Last Admin: 05/24/18 09:04 Dose: 1 tab Zolpidem Tartrate (Ambien) 5 mg PO HS PRN PRN Reason: Insomnia Stop: 07/18/18 18:41 Last Admin: 05/22/18 20:16 Dose: 5 mg General: Alert, No acute distress HEENT: Atraumatic Neck: Supple Cardiovascular: Regular rate Abdomen: Bowel sounds Extremities: Other (No edema) Neurological: Other (Non ambulatory) Skin: Other Psych/Mental Status: Other (Confused) Assessment/Plan - Problem List Patient Problems: All Active Problems STATUS (Acute) - Assessment Assessment: Current Active Problems Problem Status Onset STATUS Acute Patient is awake, alert, calm, in no acute distress. 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 - Plan Plan: Patient is follow by Psychiatry. Bactrim is started for UTI. Nutritional Asmnt/Malnutr-PDOC - Dietary Evaluation Malnutrition Findings (Please click <Entered> for more info): Nutritional Asmnt/Malnutrition Start: 05/23/18 13: 13 Text: Status: Complete Freq: Protocol: Document 05/23/18 13:13 LCHENG (Rec: 05/23/18 13:27 [email or web address]) Nutritional Asmnt/Malnutrition Patient General Information Nutritional Screening Low Risk Diagnosis psychosis Pertinent Medical Hx/Surgical Hx a fib Subjective Information Pt not seen in the room at time of visit. Per nurse, pt is alert and ambulatary. Per EMR, PO intake 100% of meals since admitted. Current Diet Order/ Nutrition Support regular Pertinent Medications remeron, theragran, bactrim Pertinent Labs 05/19 glucose 165, phos 2.3 Nutritional Hx/Data Height 1.68 m Height (Calculated Centimeters) 167.6 Current Weight (lbs) 59.421 kg Weight (Calculated Kilograms) 59.4 Weight (Calculated Grams) 24800.6 [place] Body Weight 142 Body Mass Index (BMI) 21.1 Weight Status Approriate GI Symptoms GI Symptoms None Last BM 05/22 Difficult in: None Skin Integrity/Comment: intact Current %PO Good (75-100%) Estimated Nutritional Goals BEE in Kcals: Using Current wt Calories/Kcals/Kg 25-30 Kcals Calculated 3113-2351 Protein: Using Current wt Protein g/k Protein Calculated 60 Fluid: ml 1500-1800ml (1ml/kcal) Nutritional Problem 1. Problem Problem altered nutrition relatedl abs Etiology endocrine dysfunction and electrolytes imbalance Signs/Symptoms: glucose 165, phos 2.3 No current Nutrition Prob Problem N/A Intervention/Recommendation Comments 1. Continue with regular diet as ordered. Recommend A1c check to assess the need for CCHO diet. Monitor abnomal labs as needed. 2. Monitor PO intake, wt, labs and skin integrity 3. F/U as low risk in 7 days, 05/30 Expected Outcomes/Goals Expected Outcomes/Goals 1. PO intake to meet at least 75% of nutritional needs. 2. Wt stability, skin to remain intact, labs to approach WNL.
--- NOTE | 2018-05-24 20:42 | Progress Notes ---
DATE: 05/24/2018 SUBJECTIVE: Chart reviewed and the patient interviewed. Also, discussed the patient's condition with the staff and reviewed records and labs. The patient is still anxious and is extremely angry with his . The patient is disappointed because his want to keep him in [facility] and he feels that he does not need to be there. Also, is still restless and he is still in a depressed mood and anxious. The patient also looking for a solution in order to not to go to [facility] and to go back to his home and feels that his is doing that in order to get him out of the house. The patient also refused to take his medications yesterday because of fear that his is trying to "prove that I am crazy." Otherwise, the patient is anxious and the patient is in irritable mood and is agitated. ASSESSMENT: The patient is still suspicious and paranoid about his 's actions. I recommended yesterday to have family meetings with the patient's and his children as well as the patient, but it was not done because no social services coordinator or somebody to do the family meeting yesterday. We will try to have that done today and we will continue to follow up. JOB# [id number]
[2018-05-25] MEDS: Multivitamin Tab PO SCH (08:56)
[2018-05-25] MEDS: Sulfamethoxazole/TMP 800/160mg Tab PO SCH ×2 (08:56→17:08)
--- NOTE | 2018-05-25 10:00 | General Progress Note ---
Subjective - Review of Systems Service Date: 05/25/18 Subjective: I am ok. Objective - Results Result Diagrams: 05/19/18 14:06 05/19/18 14:06 Recent Labs: Laboratory Last Values WBC 9.8 Th/cmm (4.8-10.8) 05/19/18 14:06 RBC 4.93 Mil/cmm (3.80-5.80) 05/19/18 14:06 Hgb 14.9 gm/dL (12-16) 05/19/18 14:06 Hct 45.1 % (41.0-60) 05/19/18 14:06 MCV 91.5 fl (80-99) 05/19/18 14:06 MCH 30.3 pg (27.0-31.0) 05/19/18 14:06 MCHC Differential 33.1 pg (28.0-36.0) 05/19/18 14:06 RDW 13.0 % (11.5-20.0) 05/19/18 14:06 Plt Count 332 Th/cmm (150-400) 05/19/18 14:06 MPV 7.5 fl 05/19/18 14:06 Neutrophils % 75.5 % (40.0-80.0) 05/19/18 14:06 Lymphocytes % 14.7 % (20.0-50.0) L 05/19/18 14:06 Monocytes % 9.0 % (2.0-10.0) 05/19/18 14:06 Eosinophils % 0.4 % (0.0-5.0) 05/19/18 14:06 Basophils % 0.4 % (0.0-2.0) 05/19/18 14:06 Sodium 138 mEq/L (136-145) 05/19/18 14:06 Potassium 3.7 mEq/L (3.5-5.1) 05/19/18 14:06 Chloride 104 mEq/L (98-107) 05/19/18 14:06 Carbon Dioxide 22.0 mEq/L (21.0-31.0) 05/19/18 14:06 Anion Gap 15.7 (7.0-16.0) 05/19/18 14:06 BUN 18 mg/dL (7-25) 05/19/18 14:06 Creatinine 1.2 mg/dL (0.7-1.3) 05/19/18 14:06 Est GFR ( Amer) > 60.0 ml/min (>90) 05/19/18 14:06 Est GFR (Non-Af Amer) > 60.0 ml/min 05/19/18 14:06 BUN/Creatinine Ratio 15.0 05/19/18 14:06 Glucose 165 mg/dL (70-105) H 05/19/18 14:06 Calcium 9.5 mg/dL (8.6-10.3) 05/19/18 14:06 Phosphorus 2.3 mg/dL (2.5-5.0) L 05/19/18 14:06 Magnesium 2.1 mg/dL (1.9-2.7) 05/19/18 14:06 Total Bilirubin 0.8 mg/dL (0.3-1.0) 05/19/18 14:06 AST 16 U/L (13-39) 05/19/18 14:06 ALT 10 U/L (7-52) 05/19/18 14:06 Alkaline Phosphatase 49 U/L (34-104) 05/19/18 14:06 Troponin I 0.03 ng/mL (0.01-0.05) 05/19/18 14:06 Total Protein 7.4 gm/dL (6.0-8.3) 05/19/18 14:06 Albumin 4.4 gm/dL (4.2-5.5) 05/19/18 14:06 Globulin 3.0 gm/dL 05/19/18 14:06 Albumin/Globulin Ratio 1.5 (1.0-1.8) 05/19/18 14:06 Triglycerides 65 mg/dL (<150) 05/19/18 14:06 Cholesterol 186 mg/dL (<200) 05/19/18 14:06 LDL Cholesterol Direct 140 mg/dL (75-193) 05/19/18 14:06 HDL Cholesterol 57 mg/dL (23-92) 05/19/18 14:06 TSH 1.79 uIU/ml (0.34-5.60) 05/19/18 14:06 Urine Source CLEAN C 05/19/18 14:15 Urine Color YELLOW 05/19/18 14:15 Urine Clarity HAZY (CLEAR) 05/19/18 14:15 Urine pH 5.5 (4.6 - 8.0) 05/19/18 14:15 Ur Specific [employer] [place] >= 1.030 (1.005-1.030) 05/19/18 14:15 Urine Protein 100 mg/dL (NEGATIVE) H 05/19/18 14:15 Urine Glucose (UA) NEGATIVE mg/dL (NEGATIVE) 05/19/18 14:15 Urine Ketones NEGATIVE mg/dL (NEGATIVE) 05/19/18 14:15 Urine Blood SMALL (NEGATIVE) H 05/19/18 14:15 Urine Nitrate NEGATIVE (NEGATIVE) 05/19/18 14:15 Urine Bilirubin SMALL (NEGATIVE) H 05/19/18 14:15 Urine Urobilinogen 0.2 E.U./dL (0.2 - 1.0) 05/19/18 14:15 Ur Leukocyte Esterase TRACE (NEGATIVE) H 05/19/18 14:15 Urine RBC 5-10 /hpf (0-5) H 05/19/18 14:15 Urine WBC 10-25 /hpf (0-5) H 05/19/18 14:15 Ur Epithelial Cells FEW /lpf (FEW) 05/19/18 14:15 Urine Bacteria 3+ /hpf (NONE SEEN) H 05/19/18 14:15 Fine Granular Casts 0-2 /lpf (NONE SEEN) H 05/19/18 14:15 Coarse Granular Casts 0-2 /lpf (NONE SEEN) H 05/19/18 14:15 Urine Opiates Screen NEGATIVE (NEGATIVE) 05/19/18 13:30 Urine Methadone Screen NEGATIVE (NEGATIVE) 05/19/18 13:30 Ur Barbiturates Screen NEGATIVE (NEGATIVE) 05/19/18 13:30 Ur Tricyclics Screen NEGATIVE (NEGATIVE) 05/19/18 13:30 Ur Phencyclidine Scrn NEGATIVE (NEGATIVE) 05/19/18 13:30 Amphetamines Screen NEGATIVE (NEGATIVE) 05/19/18 13:30 U Methamphetamines Scrn NEGATIVE (NEGATIVE) 05/19/18 13:30 U Benzodiazepines Scrn NEGATIVE (NEGATIVE) 05/19/18 13:30 U Cocaine Metab Screen NEGATIVE (NEGATIVE) 05/19/18 13:30 U Cannabinoids Screen NEGATIVE (NEGATIVE) 05/19/18 13:30 Ethyl Alcohol < 10 mg/dL (0-10) 05/19/18 14:06 - Physical Exam Vitals and I&O: Vital Signs Temp 97.9 F 05/24/18 21:00 Pulse 68 05/25/18 06:39 Resp 20 05/25/18 06:39 BP 128/63 05/25/18 06:39 Pulse Ox 99 05/25/18 06:39 Intake & Output 05/24/18 05/25/18 05/25/18 18:59 06:59 18:59 Intake Total 480 Balance 480 Intake: Oral 480 Other: # Voids 2 # Bowel Movements 1 Active Medications: Current Medications Acetaminophen (Tylenol) 650 mg PO Q4HR PRN PRN Reason: Mild Pain 1-3 / Temp above 100 Stop: 07/18/18 18:41 Al Hydrox/Mg Hydrox/Simethicone (Maalox) 30 ml PO Q4HR PRN PRN Reason: GI DISTRESS Stop: 07/18/18 18:41 Aripiprazole (Abilify) 5 mg PO DAILY KOMAL; Protocol Stop: 07/21/18 08:59 Last Admin: 05/25/18 08:14 Dose: Not Given Lorazepam (Ativan) 0.5 mg PO Q4HR PRN; Protocol PRN Reason: Agitation Stop: 06/18/18 18:41 Last Admin: 05/24/18 18:54 Dose: 0.5 mg Magnesium Hydroxide (Milk Of Magnesia) 30 ml PO HS PRN PRN Reason: Constipation Mirtazapine (Remeron) 15 mg PO HS KOMAL; Protocol Stop: 07/19/18 20:59 Last Admin: 05/24/18 21:34 Dose: Not Given Multivitamins/Vitamin C (Theragran) 1 tab PO DAILY KOMAL Stop: 07/19/18 08:59 Last Admin: 05/25/18 08:56 Dose: 1 tab Trimethoprim/Sulfamethoxazole (Bactrim Ds) 1 tab PO BID KOMAL Stop: 07/19/18 08:59 Last Admin: 05/25/18 08:56 Dose: 1 tab Zolpidem Tartrate (Ambien) 5 mg PO HS PRN PRN Reason: Insomnia Stop: 07/18/18 18:41 Last Admin: 05/22/18 20:16 Dose: 5 mg General: Alert, No acute distress HEENT: Atraumatic Neck: Supple Cardiovascular: Regular rate Abdomen: Bowel sounds Extremities: Other (No edema) Neurological: Other (Non ambulatory) Skin: Other Psych/Mental Status: Other (Confused) Assessment/Plan - Problem List Patient Problems: All Active Problems STATUS (Acute) - Assessment Assessment: Current Active Problems Problem Status Onset STATUS Acute Patient is awake, alert, calm, in no acute distress. 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 - Plan Plan: Patient is follow by Psychiatry. Bactrim is started for UTI. Nutritional Asmnt/Malnutr-PDOC - Dietary Evaluation Malnutrition Findings (Please click <Entered> for more info): Nutritional Asmnt/Malnutrition Start: 05/23/18 13: 13 Text: Status: Complete Freq: Protocol: Document 05/23/18 13:13 LCHENG (Rec: 05/23/18 13:27 [email or web address]) Nutritional Asmnt/Malnutrition Patient General Information Nutritional Screening Low Risk Diagnosis psychosis Pertinent Medical Hx/Surgical Hx a fib Subjective Information Pt not seen in the room at time of visit. Per nurse, pt is alert and ambulatary. Per EMR, PO intake 100% of meals since admitted. Current Diet Order/ Nutrition Support regular Pertinent Medications remeron, theragran, bactrim Pertinent Labs 05/19 glucose 165, phos 2.3 Nutritional Hx/Data Height 1.68 m Height (Calculated Centimeters) 167.6 Current Weight (lbs) 59.421 kg Weight (Calculated Kilograms) 59.4 Weight (Calculated Grams) 47204.6 [place] Body Weight 142 Body Mass Index (BMI) 21.1 Weight Status Approriate GI Symptoms GI Symptoms None Last BM 05/22 Difficult in: None Skin Integrity/Comment: intact Current %PO Good (75-100%) Estimated Nutritional Goals BEE in Kcals: Using Current wt Calories/Kcals/Kg 25-30 Kcals Calculated 2944-3919 Protein: Using Current wt Protein g/k Protein Calculated 60 Fluid: ml 1500-1800ml (1ml/kcal) Nutritional Problem 1. Problem Problem altered nutrition relatedl abs Etiology endocrine dysfunction and electrolytes imbalance Signs/Symptoms: glucose 165, phos 2.3 No current Nutrition Prob Problem N/A Intervention/Recommendation Comments 1. Continue with regular diet as ordered. Recommend A1c check to assess the need for CCHO diet. Monitor abnomal labs as needed. 2. Monitor PO intake, wt, labs and skin integrity 3. F/U as low risk in 7 days, 05/30 Expected Outcomes/Goals Expected Outcomes/Goals 1. PO intake to meet at least 75% of nutritional needs. 2. Wt stability, skin to remain intact, labs to approach WNL.
--- NOTE | 2018-05-26 05:18 | Progress Notes ---
DATE: 05/25/2018 SUBJECTIVE: Chart reviewed and the patient interviewed. Also, discussed the patient's condition with the staff and reviewed records and labs. The patient is still anxious about family meeting and he is still paranoid about his . The patient also still waiting for family meeting and family meeting was not done because no social welfare administrator available in the hospital for the last 4 days. The patient also is still angry and refusing to take any medications and thinks that if he takes medications it is going to hurt him. 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 ASSESSMENT: The patient still has some grandiose delusions and also still has issues with discharge plans and placement. TREATMENT PLAN: We will continue to monitor behavior and we will continue to work on discharge plans. JOB# [id number]
[2018-05-26] MEDS: Sulfamethoxazole/TMP 800/160mg Tab PO SCH ×2 (08:12→16:46)
[2018-05-26] MEDS: Multivitamin Tab PO SCH (08:12)
--- NOTE | 2018-05-26 08:31 | General Progress Note ---
Subjective - Review of Systems Service Date: 05/26/18 Subjective: I am ok. Objective - Results Result Diagrams: 05/19/18 14:06 05/19/18 14:06 Recent Labs: Laboratory Last Values WBC 9.8 Th/cmm (4.8-10.8) 05/19/18 14:06 RBC 4.93 Mil/cmm (3.80-5.80) 05/19/18 14:06 Hgb 14.9 gm/dL (12-16) 05/19/18 14:06 Hct 45.1 % (41.0-60) 05/19/18 14:06 MCV 91.5 fl (80-99) 05/19/18 14:06 MCH 30.3 pg (27.0-31.0) 05/19/18 14:06 MCHC Differential 33.1 pg (28.0-36.0) 05/19/18 14:06 RDW 13.0 % (11.5-20.0) 05/19/18 14:06 Plt Count 332 Th/cmm (150-400) 05/19/18 14:06 MPV 7.5 fl 05/19/18 14:06 Neutrophils % 75.5 % (40.0-80.0) 05/19/18 14:06 Lymphocytes % 14.7 % (20.0-50.0) L 05/19/18 14:06 Monocytes % 9.0 % (2.0-10.0) 05/19/18 14:06 Eosinophils % 0.4 % (0.0-5.0) 05/19/18 14:06 Basophils % 0.4 % (0.0-2.0) 05/19/18 14:06 Sodium 138 mEq/L (136-145) 05/19/18 14:06 Potassium 3.7 mEq/L (3.5-5.1) 05/19/18 14:06 Chloride 104 mEq/L (98-107) 05/19/18 14:06 Carbon Dioxide 22.0 mEq/L (21.0-31.0) 05/19/18 14:06 Anion Gap 15.7 (7.0-16.0) 05/19/18 14:06 BUN 18 mg/dL (7-25) 05/19/18 14:06 Creatinine 1.2 mg/dL (0.7-1.3) 05/19/18 14:06 Est GFR ( Amer) > 60.0 ml/min (>90) 05/19/18 14:06 Est GFR (Non-Af Amer) > 60.0 ml/min 05/19/18 14:06 BUN/Creatinine Ratio 15.0 05/19/18 14:06 Glucose 165 mg/dL (70-105) H 05/19/18 14:06 Calcium 9.5 mg/dL (8.6-10.3) 05/19/18 14:06 Phosphorus 2.3 mg/dL (2.5-5.0) L 05/19/18 14:06 Magnesium 2.1 mg/dL (1.9-2.7) 05/19/18 14:06 Total Bilirubin 0.8 mg/dL (0.3-1.0) 05/19/18 14:06 AST 16 U/L (13-39) 05/19/18 14:06 ALT 10 U/L (7-52) 05/19/18 14:06 Alkaline Phosphatase 49 U/L (34-104) 05/19/18 14:06 Troponin I 0.03 ng/mL (0.01-0.05) 05/19/18 14:06 Total Protein 7.4 gm/dL (6.0-8.3) 05/19/18 14:06 Albumin 4.4 gm/dL (4.2-5.5) 05/19/18 14:06 Globulin 3.0 gm/dL 05/19/18 14:06 Albumin/Globulin Ratio 1.5 (1.0-1.8) 05/19/18 14:06 Triglycerides 65 mg/dL (<150) 05/19/18 14:06 Cholesterol 186 mg/dL (<200) 05/19/18 14:06 LDL Cholesterol Direct 140 mg/dL (75-193) 05/19/18 14:06 HDL Cholesterol 57 mg/dL (23-92) 05/19/18 14:06 TSH 1.79 uIU/ml (0.34-5.60) 05/19/18 14:06 Urine Source CLEAN C 05/19/18 14:15 Urine Color YELLOW 05/19/18 14:15 Urine Clarity HAZY (CLEAR) 05/19/18 14:15 Urine pH 5.5 (4.6 - 8.0) 05/19/18 14:15 Ur Specific [place] >= 1.030 (1.005-1.030) 05/19/18 14:15 Urine Protein 100 mg/dL (NEGATIVE) H 05/19/18 14:15 Urine Glucose (UA) NEGATIVE mg/dL (NEGATIVE) 05/19/18 14:15 Urine Ketones NEGATIVE mg/dL (NEGATIVE) 05/19/18 14:15 Urine Blood SMALL (NEGATIVE) H 05/19/18 14:15 Urine Nitrate NEGATIVE (NEGATIVE) 05/19/18 14:15 Urine Bilirubin SMALL (NEGATIVE) H 05/19/18 14:15 Urine Urobilinogen 0.2 E.U./dL (0.2 - 1.0) 05/19/18 14:15 Ur Leukocyte Esterase TRACE (NEGATIVE) H 05/19/18 14:15 Urine RBC 5-10 /hpf (0-5) H 05/19/18 14:15 Urine WBC 10-25 /hpf (0-5) H 05/19/18 14:15 Ur Epithelial Cells FEW /lpf (FEW) 05/19/18 14:15 Urine Bacteria 3+ /hpf (NONE SEEN) H 05/19/18 14:15 Fine Granular Casts 0-2 /lpf (NONE SEEN) H 05/19/18 14:15 Coarse Granular Casts 0-2 /lpf (NONE SEEN) H 05/19/18 14:15 Urine Opiates Screen NEGATIVE (NEGATIVE) 05/19/18 13:30 Urine Methadone Screen NEGATIVE (NEGATIVE) 05/19/18 13:30 Ur Barbiturates Screen NEGATIVE (NEGATIVE) 05/19/18 13:30 Ur Tricyclics Screen NEGATIVE (NEGATIVE) 05/19/18 13:30 Ur Phencyclidine Scrn NEGATIVE (NEGATIVE) 05/19/18 13:30 Amphetamines Screen NEGATIVE (NEGATIVE) 05/19/18 13:30 U Methamphetamines Scrn NEGATIVE (NEGATIVE) 05/19/18 13:30 U Benzodiazepines Scrn NEGATIVE (NEGATIVE) 05/19/18 13:30 U Cocaine Metab Screen NEGATIVE (NEGATIVE) 05/19/18 13:30 U Cannabinoids Screen NEGATIVE (NEGATIVE) 05/19/18 13:30 Ethyl Alcohol < 10 mg/dL (0-10) 05/19/18 14:06 - Physical Exam Vitals and I&O: Vital Signs Temp 98.8 F 05/26/18 07:11 Pulse 82 05/26/18 07:11 Resp 20 05/26/18 07:11 BP 99/50 05/26/18 07:11 Pulse Ox 96 05/26/18 07:11 Intake & Output 05/25/18 05/26/18 05/26/18 18:59 06:59 18:59 Intake Total 1200 240 Balance 1200 240 Intake: Oral 1200 240 Other: # Voids 4 2 # Bowel Movements 1 Active Medications: Current Medications Acetaminophen (Tylenol) 650 mg PO Q4HR PRN PRN Reason: Mild Pain 1-3 / Temp above 100 Stop: 07/18/18 18:41 Al Hydrox/Mg Hydrox/Simethicone (Maalox) 30 ml PO Q4HR PRN PRN Reason: GI DISTRESS Stop: 07/18/18 18:41 Aripiprazole (Abilify) 5 mg PO DAILY KOMAL; Protocol Stop: 07/21/18 08:59 Last Admin: 05/26/18 08:12 Dose: Not Given Lorazepam (Ativan) 0.5 mg PO Q4HR PRN; Protocol PRN Reason: Agitation Stop: 06/18/18 18:41 Last Admin: 05/24/18 18:54 Dose: 0.5 mg Magnesium Hydroxide (Milk Of Magnesia) 30 ml PO HS PRN PRN Reason: Constipation Mirtazapine (Remeron) 15 mg PO HS KOMAL; Protocol Stop: 07/19/18 20:59 Last Admin: 05/25/18 20:58 Dose: Not Given Multivitamins/Vitamin C (Theragran) 1 tab PO DAILY KOMAL Stop: 07/19/18 08:59 Last Admin: 05/26/18 08:12 Dose: 1 tab Trimethoprim/Sulfamethoxazole (Bactrim Ds) 1 tab PO BID KOMAL Stop: 07/19/18 08:59 Last Admin: 05/26/18 08:12 Dose: 1 tab Zolpidem Tartrate (Ambien) 5 mg PO HS PRN PRN Reason: Insomnia Stop: 07/18/18 18:41 Last Admin: 05/22/18 20:16 Dose: 5 mg General: Alert, No acute distress HEENT: Atraumatic Neck: Supple Cardiovascular: Regular rate Abdomen: Bowel sounds Extremities: Other (No edema) Neurological: Other (Non ambulatory) Skin: Other Psych/Mental Status: Other (Confused) Assessment/Plan - Problem List Patient Problems: All Active Problems STATUS (Acute) - Assessment Assessment: Current Active Problems Problem Status Onset STATUS Acute Patient is awake, alert, calm, in no acute distress. 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 - Plan Plan: Patient is follow by Psychiatry. Bactrim is started for UTI. Nutritional Asmnt/Malnutr-PDOC - Dietary Evaluation Malnutrition Findings (Please click <Entered> for more info): Nutritional Asmnt/Malnutrition Start: 05/23/18 13: 13 Text: Status: Complete Freq: Protocol: Document 05/23/18 13:13 LCHENG (Rec: 05/23/18 13:27 [email or web address]) Nutritional Asmnt/Malnutrition Patient General Information Nutritional Screening Low Risk Diagnosis psychosis Pertinent Medical Hx/Surgical Hx a fib Subjective Information Pt not seen in the room at time of visit. Per nurse, pt is alert and ambulatary. Per EMR, PO intake 100% of meals since admitted. Current Diet Order/ Nutrition Support regular Pertinent Medications remeron, theragran, bactrim Pertinent Labs 05/19 glucose 165, phos 2.3 Nutritional Hx/Data Height 1.68 m Height (Calculated Centimeters) 167.6 Current Weight (lbs) 59.421 kg Weight (Calculated Kilograms) 59.4 Weight (Calculated Grams) 09430.6 [place] Body Weight 142 Body Mass Index (BMI) 21.1 Weight Status Approriate GI Symptoms GI Symptoms None Last BM 05/22 Difficult in: None Skin Integrity/Comment: intact Current %PO Good (75-100%) Estimated Nutritional Goals BEE in Kcals: Using Current wt Calories/Kcals/Kg 25-30 Kcals Calculated 8550-9320 Protein: Using Current wt Protein g/k Protein Calculated 60 Fluid: ml 1500-1800ml (1ml/kcal) Nutritional Problem 1. Problem Problem altered nutrition relatedl abs Etiology endocrine dysfunction and electrolytes imbalance Signs/Symptoms: glucose 165, phos 2.3 No current Nutrition Prob Problem N/A Intervention/Recommendation Comments 1. Continue with regular diet as ordered. Recommend A1c check to assess the need for CCHO diet. Monitor abnomal labs as needed. 2. Monitor PO intake, wt, labs and skin integrity 3. F/U as low risk in 7 days, 05/30 Expected Outcomes/Goals Expected Outcomes/Goals 1. PO intake to meet at least 75% of nutritional needs. 2. Wt stability, skin to remain intact, labs to approach WNL.
--- NOTE | 2018-05-27 00:53 | Progress Notes ---
DATE: 05/26/2018 SUBJECTIVE: Case was discussed with staff of the patient and reviewed records. This is a 68-year-old male, who was admitted on 05/19/2018. He was on a hold by the police for danger to others with grave disability. He reported that he had not eaten or slept in 2 days. He also got a wine bottle and told the staff in the hospital and the resident that he was going to hit them on the head and kill them. The patient was angry and irritable. The patient is with a history of what seems to be bipolar disorder. The patient continues to be paranoid about his . This case finisher should be having a family meeting. The patient is refusing to take any medications. He does not think he needs to be on medication. He continues to be paranoid. He believes if he takes medication, it is going to harm him. PLAN: He is on Remeron 50 mg at bedtime and Abilify 5 mg daily. We will continue to have the patient in group therapy, milieu therapy, and adjust medications as needed. JOB# [id number]
--- NOTE | 2018-05-27 08:54 | General Progress Note ---
Subjective - Review of Systems Service Date: 05/27/18 Subjective: I am ok. Objective - Results Result Diagrams: 05/19/18 14:06 05/19/18 14:06 Recent Labs: Laboratory Last Values WBC 9.8 Th/cmm (4.8-10.8) 05/19/18 14:06 RBC 4.93 Mil/cmm (3.80-5.80) 05/19/18 14:06 Hgb 14.9 gm/dL (12-16) 05/19/18 14:06 Hct 45.1 % (41.0-60) 05/19/18 14:06 MCV 91.5 fl (80-99) 05/19/18 14:06 MCH 30.3 pg (27.0-31.0) 05/19/18 14:06 MCHC Differential 33.1 pg (28.0-36.0) 05/19/18 14:06 RDW 13.0 % (11.5-20.0) 05/19/18 14:06 Plt Count 332 Th/cmm (150-400) 05/19/18 14:06 MPV 7.5 fl 05/19/18 14:06 Neutrophils % 75.5 % (40.0-80.0) 05/19/18 14:06 Lymphocytes % 14.7 % (20.0-50.0) L 05/19/18 14:06 Monocytes % 9.0 % (2.0-10.0) 05/19/18 14:06 Eosinophils % 0.4 % (0.0-5.0) 05/19/18 14:06 Basophils % 0.4 % (0.0-2.0) 05/19/18 14:06 Sodium 138 mEq/L (136-145) 05/19/18 14:06 Potassium 3.7 mEq/L (3.5-5.1) 05/19/18 14:06 Chloride 104 mEq/L (98-107) 05/19/18 14:06 Carbon Dioxide 22.0 mEq/L (21.0-31.0) 05/19/18 14:06 Anion Gap 15.7 (7.0-16.0) 05/19/18 14:06 BUN 18 mg/dL (7-25) 05/19/18 14:06 Creatinine 1.2 mg/dL (0.7-1.3) 05/19/18 14:06 Est GFR ( Amer) > 60.0 ml/min (>90) 05/19/18 14:06 Est GFR (Non-Af Amer) > 60.0 ml/min 05/19/18 14:06 BUN/Creatinine Ratio 15.0 05/19/18 14:06 Glucose 165 mg/dL (70-105) H 05/19/18 14:06 Calcium 9.5 mg/dL (8.6-10.3) 05/19/18 14:06 Phosphorus 2.3 mg/dL (2.5-5.0) L 05/19/18 14:06 Magnesium 2.1 mg/dL (1.9-2.7) 05/19/18 14:06 Total Bilirubin 0.8 mg/dL (0.3-1.0) 05/19/18 14:06 AST 16 U/L (13-39) 05/19/18 14:06 ALT 10 U/L (7-52) 05/19/18 14:06 Alkaline Phosphatase 49 U/L (34-104) 05/19/18 14:06 Troponin I 0.03 ng/mL (0.01-0.05) 05/19/18 14:06 Total Protein 7.4 gm/dL (6.0-8.3) 05/19/18 14:06 Albumin 4.4 gm/dL (4.2-5.5) 05/19/18 14:06 Globulin 3.0 gm/dL 05/19/18 14:06 Albumin/Globulin Ratio 1.5 (1.0-1.8) 05/19/18 14:06 Triglycerides 65 mg/dL (<150) 05/19/18 14:06 Cholesterol 186 mg/dL (<200) 05/19/18 14:06 LDL Cholesterol Direct 140 mg/dL (75-193) 05/19/18 14:06 HDL Cholesterol 57 mg/dL (23-92) 05/19/18 14:06 TSH 1.79 uIU/ml (0.34-5.60) 05/19/18 14:06 Urine Source CLEAN C 05/19/18 14:15 Urine Color YELLOW 05/19/18 14:15 Urine Clarity HAZY (CLEAR) 05/19/18 14:15 Urine pH 5.5 (4.6 - 8.0) 05/19/18 14:15 Ur Specific [place] >= 1.030 (1.005-1.030) 05/19/18 14:15 Urine Protein 100 mg/dL (NEGATIVE) H 05/19/18 14:15 Urine Glucose (UA) NEGATIVE mg/dL (NEGATIVE) 05/19/18 14:15 Urine Ketones NEGATIVE mg/dL (NEGATIVE) 05/19/18 14:15 Urine Blood SMALL (NEGATIVE) H 05/19/18 14:15 Urine Nitrate NEGATIVE (NEGATIVE) 05/19/18 14:15 Urine Bilirubin SMALL (NEGATIVE) H 05/19/18 14:15 Urine Urobilinogen 0.2 E.U./dL (0.2 - 1.0) 05/19/18 14:15 Ur Leukocyte Esterase TRACE (NEGATIVE) H 05/19/18 14:15 Urine RBC 5-10 /hpf (0-5) H 05/19/18 14:15 Urine WBC 10-25 /hpf (0-5) H 05/19/18 14:15 Ur Epithelial Cells FEW /lpf (FEW) 05/19/18 14:15 Urine Bacteria 3+ /hpf (NONE SEEN) H 05/19/18 14:15 Fine Granular Casts 0-2 /lpf (NONE SEEN) H 05/19/18 14:15 Coarse Granular Casts 0-2 /lpf (NONE SEEN) H 05/19/18 14:15 Urine Opiates Screen NEGATIVE (NEGATIVE) 05/19/18 13:30 Urine Methadone Screen NEGATIVE (NEGATIVE) 05/19/18 13:30 Ur Barbiturates Screen NEGATIVE (NEGATIVE) 05/19/18 13:30 Ur Tricyclics Screen NEGATIVE (NEGATIVE) 05/19/18 13:30 Ur Phencyclidine Scrn NEGATIVE (NEGATIVE) 05/19/18 13:30 Amphetamines Screen NEGATIVE (NEGATIVE) 05/19/18 13:30 U Methamphetamines Scrn NEGATIVE (NEGATIVE) 05/19/18 13:30 U Benzodiazepines Scrn NEGATIVE (NEGATIVE) 05/19/18 13:30 U Cocaine Metab Screen NEGATIVE (NEGATIVE) 05/19/18 13:30 U Cannabinoids Screen NEGATIVE (NEGATIVE) 05/19/18 13:30 Ethyl Alcohol < 10 mg/dL (0-10) 05/19/18 14:06 - Physical Exam Vitals and I&O: Vital Signs Temp 98.6 F 05/27/18 06:39 Pulse 53 05/27/18 06:39 Resp 18 05/27/18 06:39 BP 104/65 05/27/18 06:39 Pulse Ox 98 05/27/18 06:39 Intake & Output 05/26/18 05/27/18 05/27/18 18:59 06:59 18:59 Intake Total 1200 240 Balance 1200 240 Weight (lbs) 59.421 kg Intake: Oral 1200 240 Other: # Voids 4 3 # Bowel Movements 1 0 Weight Source Bedscale Active Medications: Current Medications Acetaminophen (Tylenol) 650 mg PO Q4HR PRN PRN Reason: Mild Pain 1-3 / Temp above 100 Stop: 07/18/18 18:41 Al Hydrox/Mg Hydrox/Simethicone (Maalox) 30 ml PO Q4HR PRN PRN Reason: GI DISTRESS Stop: 07/18/18 18:41 Aripiprazole (Abilify) 5 mg PO DAILY KOMAL; Protocol Stop: 07/21/18 08:59 Last Admin: 05/26/18 08:12 Dose: Not Given Lorazepam (Ativan) 0.5 mg PO Q4HR PRN; Protocol PRN Reason: Agitation Stop: 06/18/18 18:41 Last Admin: 05/24/18 18:54 Dose: 0.5 mg Magnesium Hydroxide (Milk Of Magnesia) 30 ml PO HS PRN PRN Reason: Constipation Mirtazapine (Remeron) 15 mg PO HS KOMAL; Protocol Stop: 07/19/18 20:59 Last Admin: 05/26/18 20:32 Dose: Not Given Multivitamins/Vitamin C (Theragran) 1 tab PO DAILY KOMAL Stop: 07/19/18 08:59 Last Admin: 05/26/18 08:12 Dose: 1 tab Trimethoprim/Sulfamethoxazole (Bactrim Ds) 1 tab PO BID KOMAL Stop: 07/19/18 08:59 Last Admin: 05/26/18 16:46 Dose: 1 tab Zolpidem Tartrate (Ambien) 5 mg PO HS PRN PRN Reason: Insomnia Stop: 07/18/18 18:41 Last Admin: 05/22/18 20:16 Dose: 5 mg General: Alert, No acute distress HEENT: Atraumatic Neck: Supple Cardiovascular: Regular rate Abdomen: Bowel sounds Extremities: Other (No edema) Neurological: Other (Non ambulatory) Skin: Other Psych/Mental Status: Other (Confused) Assessment/Plan - Problem List Patient Problems: All Active Problems STATUS (Acute) - Assessment Assessment: Current Active Problems Problem Status Onset 50 STATUS Acute Patient is awake, alert, calm, in no acute distress. 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 - Plan Plan: Patient is follow by Psychiatry. Bactrim is started for UTI. Nutritional Asmnt/Malnutr-PDOC - Dietary Evaluation Malnutrition Findings (Please click <Entered> for more info): Nutritional Asmnt/Malnutrition Start: 05/23/18 13: 13 Text: Status: Complete Freq: Protocol: Document 05/23/18 13:13 LCHENG (Rec: 05/23/18 13:27 LCHENG [email or web address]) Nutritional Asmnt/Malnutrition Patient General Information Nutritional Screening Low Risk Diagnosis psychosis Pertinent Medical Hx/Surgical Hx a fib Subjective Information Pt not seen in the room at time of visit. Per nurse, pt is alert and ambulatary. Per EMR, PO intake 100% of meals since admitted. Current Diet Order/ Nutrition Support regular Pertinent Medications remeron, theragran, bactrim Pertinent Labs 05/19 glucose 165, phos 2.3 Nutritional Hx/Data Height 1.68 m Height (Calculated Centimeters) 167.6 Current Weight (lbs) 59.421 kg Weight (Calculated Kilograms) 59.4 Weight (Calculated Grams) 35668.6 [employer] Body Weight 142 Body Mass Index (BMI) 21.1 Weight Status Approriate GI Symptoms GI Symptoms None Last BM 05/22 Difficult in: None Skin Integrity/Comment: intact Current %PO Good (75-100%) Estimated Nutritional Goals BEE in Kcals: Using Current wt Calories/Kcals/Kg 25-30 Kcals Calculated 4771-8956 Protein: Using Current wt Protein g/k Protein Calculated 60 Fluid: ml 1500-1800ml (1ml/kcal) Nutritional Problem 1. Problem Problem altered nutrition relatedl abs Etiology endocrine dysfunction and electrolytes imbalance Signs/Symptoms: glucose 165, phos 2.3 No current Nutrition Prob Problem N/A Intervention/Recommendation Comments 1. Continue with regular diet as ordered. Recommend A1c check to assess the need for CCHO diet. Monitor abnomal labs as needed. 2. Monitor PO intake, wt, labs and skin integrity 3. F/U as low risk in 7 days, 05/30 Expected Outcomes/Goals Expected Outcomes/Goals 1. PO intake to meet at least 75% of nutritional needs. 2. Wt stability, skin to remain intact, labs to approach WNL.
[2018-05-27] MEDS: Multivitamin Tab PO SCH (08:55)
[2018-05-27] MEDS: Sulfamethoxazole/TMP 800/160mg Tab PO SCH ×2 (08:55→17:37)
--- NOTE | 2018-05-27 23:59 | Progress Notes ---
DATE: 05/27/2018 SUBJECTIVE: Case was discussed with staff of the patient, reviewed records. The patient reports that he is feeling better, sleeping better, eating better could not sleep last night because they felt somewhat into his room and there is work in the next area. The patient with history of bipolar disorder. He has been paranoid about his . He does not take his medication. He seems to be impulsive, unpredictable, minimizing the events that led to his admission. However, Dr. Hernández ordered for the patient to have a family meeting see if his is willing to have him there also. Meanwhile working on discharge plan and we will continue to work with the patient in group therapy, milieu therapy, adjust medication as needed. JOB# [id number]
[2018-05-28] MEDS: Multivitamin Tab PO SCH (08:50)
--- NOTE | 2018-05-28 17:22 | General Progress Note ---
Subjective - Review of Systems Service Date: 05/28/18 Subjective: I am ok. Objective - Results Result Diagrams: 05/19/18 14:06 05/19/18 14:06 Recent Labs: Laboratory Last Values WBC 9.8 Th/cmm (4.8-10.8) 05/19/18 14:06 RBC 4.93 Mil/cmm (3.80-5.80) 05/19/18 14:06 Hgb 14.9 gm/dL (12-16) 05/19/18 14:06 Hct 45.1 % (41.0-60) 05/19/18 14:06 MCV 91.5 fl (80-99) 05/19/18 14:06 MCH 30.3 pg (27.0-31.0) 05/19/18 14:06 MCHC Differential 33.1 pg (28.0-36.0) 05/19/18 14:06 RDW 13.0 % (11.5-20.0) 05/19/18 14:06 Plt Count 332 Th/cmm (150-400) 05/19/18 14:06 MPV 7.5 fl 05/19/18 14:06 Neutrophils % 75.5 % (40.0-80.0) 05/19/18 14:06 Lymphocytes % 14.7 % (20.0-50.0) L 05/19/18 14:06 Monocytes % 9.0 % (2.0-10.0) 05/19/18 14:06 Eosinophils % 0.4 % (0.0-5.0) 05/19/18 14:06 Basophils % 0.4 % (0.0-2.0) 05/19/18 14:06 Sodium 138 mEq/L (136-145) 05/19/18 14:06 Potassium 3.7 mEq/L (3.5-5.1) 05/19/18 14:06 Chloride 104 mEq/L (98-107) 05/19/18 14:06 Carbon Dioxide 22.0 mEq/L (21.0-31.0) 05/19/18 14:06 Anion Gap 15.7 (7.0-16.0) 05/19/18 14:06 BUN 18 mg/dL (7-25) 05/19/18 14:06 Creatinine 1.2 mg/dL (0.7-1.3) 05/19/18 14:06 Est GFR ( Amer) > 60.0 ml/min (>90) 05/19/18 14:06 Est GFR (Non-Af Amer) > 60.0 ml/min 05/19/18 14:06 BUN/Creatinine Ratio 15.0 05/19/18 14:06 Glucose 165 mg/dL (70-105) H 05/19/18 14:06 Calcium 9.5 mg/dL (8.6-10.3) 05/19/18 14:06 Phosphorus 2.3 mg/dL (2.5-5.0) L 05/19/18 14:06 Magnesium 2.1 mg/dL (1.9-2.7) 05/19/18 14:06 Total Bilirubin 0.8 mg/dL (0.3-1.0) 05/19/18 14:06 AST 16 U/L (13-39) 05/19/18 14:06 ALT 10 U/L (7-52) 05/19/18 14:06 Alkaline Phosphatase 49 U/L (34-104) 05/19/18 14:06 Troponin I 0.03 ng/mL (0.01-0.05) 05/19/18 14:06 Total Protein 7.4 gm/dL (6.0-8.3) 05/19/18 14:06 Albumin 4.4 gm/dL (4.2-5.5) 05/19/18 14:06 Globulin 3.0 gm/dL 05/19/18 14:06 Albumin/Globulin Ratio 1.5 (1.0-1.8) 05/19/18 14:06 Triglycerides 65 mg/dL (<150) 05/19/18 14:06 Cholesterol 186 mg/dL (<200) 05/19/18 14:06 LDL Cholesterol Direct 140 mg/dL (75-193) 05/19/18 14:06 HDL Cholesterol 57 mg/dL (23-92) 05/19/18 14:06 TSH 1.79 uIU/ml (0.34-5.60) 05/19/18 14:06 Urine Source CLEAN C 05/19/18 14:15 Urine Color YELLOW 05/19/18 14:15 Urine Clarity HAZY (CLEAR) 05/19/18 14:15 Urine pH 5.5 (4.6 - 8.0) 05/19/18 14:15 Ur Specific [place] >= 1.030 (1.005-1.030) 05/19/18 14:15 Urine Protein 100 mg/dL (NEGATIVE) H 05/19/18 14:15 Urine Glucose (UA) NEGATIVE mg/dL (NEGATIVE) 05/19/18 14:15 Urine Ketones NEGATIVE mg/dL (NEGATIVE) 05/19/18 14:15 Urine Blood SMALL (NEGATIVE) H 05/19/18 14:15 Urine Nitrate NEGATIVE (NEGATIVE) 05/19/18 14:15 Urine Bilirubin SMALL (NEGATIVE) H 05/19/18 14:15 Urine Urobilinogen 0.2 E.U./dL (0.2 - 1.0) 05/19/18 14:15 Ur Leukocyte Esterase TRACE (NEGATIVE) H 05/19/18 14:15 Urine RBC 5-10 /hpf (0-5) H 05/19/18 14:15 Urine WBC 10-25 /hpf (0-5) H 05/19/18 14:15 Ur Epithelial Cells FEW /lpf (FEW) 05/19/18 14:15 Urine Bacteria 3+ /hpf (NONE SEEN) H 05/19/18 14:15 Fine Granular Casts 0-2 /lpf (NONE SEEN) H 05/19/18 14:15 Coarse Granular Casts 0-2 /lpf (NONE SEEN) H 05/19/18 14:15 Urine Opiates Screen NEGATIVE (NEGATIVE) 05/19/18 13:30 Urine Methadone Screen NEGATIVE (NEGATIVE) 05/19/18 13:30 Ur Barbiturates Screen NEGATIVE (NEGATIVE) 05/19/18 13:30 Ur Tricyclics Screen NEGATIVE (NEGATIVE) 05/19/18 13:30 Ur Phencyclidine Scrn NEGATIVE (NEGATIVE) 05/19/18 13:30 Amphetamines Screen NEGATIVE (NEGATIVE) 05/19/18 13:30 U Methamphetamines Scrn NEGATIVE (NEGATIVE) 05/19/18 13:30 U Benzodiazepines Scrn NEGATIVE (NEGATIVE) 05/19/18 13:30 U Cocaine Metab Screen NEGATIVE (NEGATIVE) 05/19/18 13:30 U Cannabinoids Screen NEGATIVE (NEGATIVE) 05/19/18 13:30 Ethyl Alcohol < 10 mg/dL (0-10) 05/19/18 14:06 - Physical Exam Vitals and I&O: Vital Signs Temp 98.7 F 05/28/18 15:00 Pulse 74 05/28/18 15:00 Resp 20 05/28/18 15:00 BP 197/72 05/28/18 15:00 Pulse Ox 98 05/28/18 15:00 Intake & Output 05/27/18 05/28/18 05/28/18 18:59 06:59 18:59 Intake Total 480 Balance 480 Weight (lbs) 59.421 kg Intake: Oral 480 Other: # Voids 2 # Bowel Movements 0 Weight Source Bedscale Active Medications: Current Medications Acetaminophen (Tylenol) 650 mg PO Q4HR PRN PRN Reason: Mild Pain 1-3 / Temp above 100 Stop: 07/18/18 18:41 Al Hydrox/Mg Hydrox/Simethicone (Maalox) 30 ml PO Q4HR PRN PRN Reason: GI DISTRESS Stop: 07/18/18 18:41 Aripiprazole (Abilify) 5 mg PO DAILY KOMAL; Protocol Stop: 07/21/18 08:59 Last Admin: 05/28/18 08:50 Dose: Not Given Lorazepam (Ativan) 0.5 mg PO Q4HR PRN; Protocol PRN Reason: Agitation Stop: 06/18/18 18:41 Last Admin: 05/24/18 18:54 Dose: 0.5 mg Magnesium Hydroxide (Milk Of Magnesia) 30 ml PO HS PRN PRN Reason: Constipation Mirtazapine (Remeron) 15 mg PO HS KOMAL; Protocol Stop: 07/19/18 20:59 Last Admin: 05/27/18 20:19 Dose: Not Given Multivitamins/Vitamin C (Theragran) 1 tab PO DAILY KOMAL Stop: 07/19/18 08:59 Last Admin: 05/28/18 08:50 Dose: 1 tab Zolpidem Tartrate (Ambien) 5 mg PO HS PRN PRN Reason: Insomnia Stop: 07/18/18 18:41 Last Admin: 05/22/18 20:16 Dose: 5 mg General: Alert, No acute distress HEENT: Atraumatic Neck: Supple Cardiovascular: Regular rate Abdomen: Bowel sounds Extremities: Other (No edema) Neurological: Other (Non ambulatory) Skin: Other Psych/Mental Status: Other (Confused) Assessment/Plan - Problem List Patient Problems: All Active Problems 51/50 STATUS (Acute) - Assessment Assessment: Current Active Problems Problem Status Onset 5150 STATUS Acute Patient is awake, alert, calm, in no acute distress. 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 - Plan Plan: Patient is follow by Psychiatry. Bactrim is started for UTI. Nutritional Asmnt/Malnutr-PDOC - Dietary Evaluation Malnutrition Findings (Please click <Entered> for more info): Nutritional Asmnt/Malnutrition Start: 05/23/18 13: 13 Text: Status: Complete Freq: Protocol: Document 05/23/18 13:13 LCHENG (Rec: 05/23/18 13:27 LCHENG [email or web address]) Nutritional Asmnt/Malnutrition Patient General Information Nutritional Screening Low Risk Diagnosis psychosis Pertinent Medical Hx/Surgical Hx a fib Subjective Information Pt not seen in the room at time of visit. Per nurse, pt is alert and ambulatary. Per EMR, PO intake 100% of meals since admitted. Current Diet Order/ Nutrition Support regular Pertinent Medications remeron, theragran, bactrim Pertinent Labs 05/19 glucose 165, phos 2.3 Nutritional Hx/Data Height 1.68 m Height (Calculated Centimeters) 167.6 Current Weight (lbs) 59.421 kg Weight (Calculated Kilograms) 59.4 Weight (Calculated Grams) 17444.6 [place] Body Weight 142 Body Mass Index (BMI) 21.1 Weight Status Approriate GI Symptoms GI Symptoms None Last BM 05/22 Difficult in: None Skin Integrity/Comment: intact Current %PO Good (75-100%) Estimated Nutritional Goals BEE in Kcals: Using Current wt Calories/Kcals/Kg 25-30 Kcals Calculated 1434-6197 Protein: Using Current wt Protein g/k Protein Calculated 60 Fluid: ml 1500-1800ml (1ml/kcal) Nutritional Problem 1. Problem Problem altered nutrition relatedl abs Etiology endocrine dysfunction and electrolytes imbalance Signs/Symptoms: glucose 165, phos 2.3 No current Nutrition Prob Problem N/A Intervention/Recommendation Comments 1. Continue with regular diet as ordered. Recommend A1c check to assess the need for CCHO diet. Monitor abnomal labs as needed. 2. Monitor PO intake, wt, labs and skin integrity 3. F/U as low risk in 7 days, 11/30 Expected Outcomes/Goals Expected Outcomes/Goals 1. PO intake to meet at least 75% of nutritional needs. 2. Wt stability, skin to remain intact, labs to approach WNL.
--- NOTE | 2018-05-29 03:39 | Progress Notes ---
DATE: Chart reviewed and the patient interviewed. Also discussed the patient's condition with the staff and reviewed records and labs. The patient is still anxious but his affect is brighter. The patient also is interacting more with peers and with others. He also is frustrated with the fact that his wants him to go to [facility], but he feels that he can manage and can handle his own living situation if he goes back to his home. He is able to provide me with information about how he can provide himself with halfway and with food and about cooking and he has been clean and bathing and showering while in the hospital and exhibiting no behavioral problems. At the same time, high risk case manager feels that the patient is gravely disabled because of his hoarding things at home and also his provided pictures and some things from the home that makes him as if he is dangerous to others and gravely disabled. I did talk to the after my discussion with the social work specialist and after I tried to call the patient's 2 daughters and it seemed that the patient although has been going to one psychiatric hospital before because of irritability and mood swings yet he is still able to manage his life and not to be considered as gravely disabled. On the other hand, the patient agreed to take his psychotropic medications and he agreed to take Abilify today. At the same time, we will continue working on discharge plans and possible either going home or [place] tomorrow. JOB# [id number]
--- NOTE | 2018-05-29 08:49 | General Progress Note ---
Subjective - Review of Systems Service Date: 05/29/18 Subjective: I am ok. Objective - Results Result Diagrams: 05/19/18 14:06 05/19/18 14:06 Recent Labs: Laboratory Last Values WBC 9.8 Th/cmm (4.8-10.8) 05/19/18 14:06 RBC 4.93 Mil/cmm (3.80-5.80) 05/19/18 14:06 Hgb 14.9 gm/dL (12-16) 05/19/18 14:06 Hct 45.1 % (41.0-60) 05/19/18 14:06 MCV 91.5 fl (80-99) 05/19/18 14:06 MCH 30.3 pg (27.0-31.0) 05/19/18 14:06 MCHC Differential 33.1 pg (28.0-36.0) 05/19/18 14:06 RDW 13.0 % (11.5-20.0) 05/19/18 14:06 Plt Count 332 Th/cmm (150-400) 05/19/18 14:06 MPV 7.5 fl 05/19/18 14:06 Neutrophils % 75.5 % (40.0-80.0) 05/19/18 14:06 Lymphocytes % 14.7 % (20.0-50.0) L 05/19/18 14:06 Monocytes % 9.0 % (2.0-10.0) 05/19/18 14:06 Eosinophils % 0.4 % (0.0-5.0) 05/19/18 14:06 Basophils % 0.4 % (0.0-2.0) 05/19/18 14:06 Sodium 138 mEq/L (136-145) 05/19/18 14:06 Potassium 3.7 mEq/L (3.5-5.1) 05/19/18 14:06 Chloride 104 mEq/L (98-107) 05/19/18 14:06 Carbon Dioxide 22.0 mEq/L (21.0-31.0) 05/19/18 14:06 Anion Gap 15.7 (7.0-16.0) 05/19/18 14:06 BUN 18 mg/dL (7-25) 05/19/18 14:06 Creatinine 1.2 mg/dL (0.7-1.3) 05/19/18 14:06 Est GFR ( Amer) > 60.0 ml/min (>90) 05/19/18 14:06 Est GFR (Non-Af Amer) > 60.0 ml/min 05/19/18 14:06 BUN/Creatinine Ratio 15.0 05/19/18 14:06 Glucose 165 mg/dL (70-105) H 05/19/18 14:06 Calcium 9.5 mg/dL (8.6-10.3) 05/19/18 14:06 Phosphorus 2.3 mg/dL (2.5-5.0) L 05/19/18 14:06 Magnesium 2.1 mg/dL (1.9-2.7) 05/19/18 14:06 Total Bilirubin 0.8 mg/dL (0.3-1.0) 05/19/18 14:06 AST 16 U/L (13-39) 05/19/18 14:06 ALT 10 U/L (7-52) 05/19/18 14:06 Alkaline Phosphatase 49 U/L (34-104) 05/19/18 14:06 Troponin I 0.03 ng/mL (0.01-0.05) 05/19/18 14:06 Total Protein 7.4 gm/dL (6.0-8.3) 05/19/18 14:06 Albumin 4.4 gm/dL (4.2-5.5) 05/19/18 14:06 Globulin 3.0 gm/dL 05/19/18 14:06 Albumin/Globulin Ratio 1.5 (1.0-1.8) 05/19/18 14:06 Triglycerides 65 mg/dL (<150) 05/19/18 14:06 Cholesterol 186 mg/dL (<200) 05/19/18 14:06 LDL Cholesterol Direct 140 mg/dL (75-193) 05/19/18 14:06 HDL Cholesterol 57 mg/dL (23-92) 05/19/18 14:06 TSH 1.79 uIU/ml (0.34-5.60) 05/19/18 14:06 Urine Source CLEAN C 05/19/18 14:15 Urine Color YELLOW 05/19/18 14:15 Urine Clarity HAZY (CLEAR) 05/19/18 14:15 Urine pH 5.5 (4.6 - 8.0) 05/19/18 14:15 Ur Specific [place] >= 1.030 (1.005-1.030) 05/19/18 14:15 Urine Protein 100 mg/dL (NEGATIVE) H 05/19/18 14:15 Urine Glucose (UA) NEGATIVE mg/dL (NEGATIVE) 05/19/18 14:15 Urine Ketones NEGATIVE mg/dL (NEGATIVE) 05/19/18 14:15 Urine Blood SMALL (NEGATIVE) H 05/19/18 14:15 Urine Nitrate NEGATIVE (NEGATIVE) 05/19/18 14:15 Urine Bilirubin SMALL (NEGATIVE) H 05/19/18 14:15 Urine Urobilinogen 0.2 E.U./dL (0.2 - 1.0) 05/19/18 14:15 Ur Leukocyte Esterase TRACE (NEGATIVE) H 05/19/18 14:15 Urine RBC 5-10 /hpf (0-5) H 05/19/18 14:15 Urine WBC 10-25 /hpf (0-5) H 05/19/18 14:15 Ur Epithelial Cells FEW /lpf (FEW) 05/19/18 14:15 Urine Bacteria 3+ /hpf (NONE SEEN) H 05/19/18 14:15 Fine Granular Casts 0-2 /lpf (NONE SEEN) H 05/19/18 14:15 Coarse Granular Casts 0-2 /lpf (NONE SEEN) H 05/19/18 14:15 Urine Opiates Screen NEGATIVE (NEGATIVE) 05/19/18 13:30 Urine Methadone Screen NEGATIVE (NEGATIVE) 05/19/18 13:30 Ur Barbiturates Screen NEGATIVE (NEGATIVE) 05/19/18 13:30 Ur Tricyclics Screen NEGATIVE (NEGATIVE) 05/19/18 13:30 Ur Phencyclidine Scrn NEGATIVE (NEGATIVE) 05/19/18 13:30 Amphetamines Screen NEGATIVE (NEGATIVE) 05/19/18 13:30 U Methamphetamines Scrn NEGATIVE (NEGATIVE) 05/19/18 13:30 U Benzodiazepines Scrn NEGATIVE (NEGATIVE) 05/19/18 13:30 U Cocaine Metab Screen NEGATIVE (NEGATIVE) 05/19/18 13:30 U Cannabinoids Screen NEGATIVE (NEGATIVE) 05/19/18 13:30 Ethyl Alcohol < 10 mg/dL (0-10) 05/19/18 14:06 - Physical Exam Vitals and I&O: Vital Signs Temp 97.4 F 05/29/18 06:42 Pulse 62 05/29/18 06:42 Resp 20 05/29/18 06:42 BP 107/60 05/29/18 06:42 Pulse Ox 99 05/29/18 06:42 Intake & Output 05/28/18 05/29/18 05/29/18 18:59 06:59 18:59 Intake Total 900 120 Balance 900 120 Intake: Oral 900 120 Other: # Voids 3 3 # Bowel Movements 1 Active Medications: Current Medications Acetaminophen (Tylenol) 650 mg PO Q4HR PRN PRN Reason: Mild Pain 1-3 / Temp above 100 Stop: 07/18/18 18:41 Al Hydrox/Mg Hydrox/Simethicone (Maalox) 30 ml PO Q4HR PRN PRN Reason: GI DISTRESS Stop: 07/18/18 18:41 Aripiprazole (Abilify) 5 mg PO DAILY KOMAL; Protocol Stop: 07/21/18 08:59 Last Admin: 05/28/18 08:50 Dose: Not Given Lorazepam (Ativan) 0.5 mg PO Q4HR PRN; Protocol PRN Reason: Agitation Stop: 06/18/18 18:41 Last Admin: 05/24/18 18:54 Dose: 0.5 mg Magnesium Hydroxide (Milk Of Magnesia) 30 ml PO HS PRN PRN Reason: Constipation Mirtazapine (Remeron) 15 mg PO HS KOMAL; Protocol Stop: 07/19/18 20:59 Last Admin: 05/28/18 20:33 Dose: 15 mg Multivitamins/Vitamin C (Theragran) 1 tab PO DAILY KOMAL Stop: 07/19/18 08:59 Last Admin: 05/28/18 08:50 Dose: 1 tab Zolpidem Tartrate (Ambien) 5 mg PO HS PRN PRN Reason: Insomnia Stop: 07/18/18 18:41 Last Admin: 05/22/18 20:16 Dose: 5 mg General: Alert, No acute distress HEENT: Atraumatic Neck: Supple Cardiovascular: Regular rate Abdomen: Bowel sounds Extremities: Other (No edema) Neurological: Other (Non ambulatory) Skin: Other Psych/Mental Status: Other (Confused) Assessment/Plan - Problem List Patient Problems: All Active Problems 51/50 STATUS (Acute) - Assessment Assessment: Current Active Problems Problem Status Onset 51/50 STATUS Acute Patient is awake, alert, calm, in no acute distress. 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 - Plan Plan: Patient is follow by Psychiatry. Bactrim is started for UTI. Nutritional Asmnt/Malnutr-PDOC - Dietary Evaluation Malnutrition Findings (Please click <Entered> for more info): Nutritional Asmnt/Malnutrition Start: 05/23/18 13: 13 Text: Status: Complete Freq: Protocol: Document 05/23/18 13:13 LCHENG (Rec: 05/23/18 13:27 [email or web address] [email or web address]) Nutritional Asmnt/Malnutrition Patient General Information Nutritional Screening Low Risk Diagnosis psychosis Pertinent Medical Hx/Surgical Hx a fib Subjective Information Pt not seen in the room at time of visit. Per nurse, pt is alert and ambulatary. Per EMR, PO intake 100% of meals since admitted. Current Diet Order/ Nutrition Support regular Pertinent Medications remeron, theragran, bactrim Pertinent Labs 05/19 glucose 165, phos 2.3 Nutritional Hx/Data Height 1.68 m Height (Calculated Centimeters) 167.6 Current Weight (lbs) 59.421 kg Weight (Calculated Kilograms) 59.4 Weight (Calculated Grams) [address].6 [place] Body Weight 142 Body Mass Index (BMI) 21.1 Weight Status Approriate GI Symptoms GI Symptoms None Last BM 05/22 Difficult in: None Skin Integrity/Comment: intact Current %PO Good (75-100%) Estimated Nutritional Goals BEE in Kcals: Using Current wt Calories/Kcals/Kg 25-30 Kcals Calculated 6217-9536 Protein: Using Current wt Protein g/k Protein Calculated 60 Fluid: ml 1500-1800ml (1ml/kcal) Nutritional Problem 1. Problem Problem altered nutrition relatedl abs Etiology endocrine dysfunction and electrolytes imbalance Signs/Symptoms: glucose 165, phos 2.3 No current Nutrition Prob Problem N/A Intervention/Recommendation Comments 1. Continue with regular diet as ordered. Recommend A1c check to assess the need for CCHO diet. Monitor abnomal labs as needed. 2. Monitor PO intake, wt, labs and skin integrity 3. F/U as low risk in 7 days, 05/30 Expected Outcomes/Goals Expected Outcomes/Goals 1. PO intake to meet at least 75% of nutritional needs. 2. Wt stability, skin to remain intact, labs to approach WNL.
[2018-05-29] MEDS: Multivitamin Tab PO SCH (08:50)
--- NOTE | 2018-05-30 06:16 | Progress Notes ---
DATE: 05/29/2018 SUBJECTIVE: Chart reviewed and the patient interviewed. Also discussed the patient's condition with the staff and reviewed records and labs. The patient continued to improve and he seems to be calmer than before. The patient also is more cooperative. He took Remeron yesterday and he is complaining of "a little tired." I showed the patient that this is because he is has just started to take the medicine. He still needs monitoring, but at the same time, he is calm and cooperative with his treatment and compliant with taking his medications. The patient also is indicating about his and that she is trying to let him stay in a correction center, which he does not want to do so. He denies any intention to harm himself or others. He also is alert and oriented to time, place, person and situation. Also his memory is intact. He also gave me the phone numbers of his 2 daughters, which I called and left messages and I have been in contact with one of his daughters, which is Nafisa. Meanwhile, I did talk to the patient's and I explained to her the improvement of the patient and that he will not meet the criteria for grave disability, but she had some concern about payments, social and about what is going to happen when he leaves the hospital. The patient's needs some assure to work on his compliant with the medications in the future and also for outpatient counseling. The patient also agreed to continue his treatment on a voluntarily basis and he signed voluntarily agreement to stay in the hospital. At the same time, we will continue monitoring and work on discharge plans. JOB# [id number]
--- NOTE | 2018-05-31 16:26 | Discharge Summary ---
DATE OF DISCHARGE: 05/29/2018 AGE: 68. SEX: Male. PHYSICIAN: Dr. Hernández. FINAL DIAGNOSIS: PRIMARY DIAGNOSIS: Bipolar disorder, moderate, without psychotic features. REASON FOR HOSPITALIZATION: The patient was admitted to the hospital on a 5150 hold for grave disability. The patient apparently went to the [facility] and his want him to be placed there and he was angry and irritable and was threatening the staff there and he was brought into the hospital. HOSPTIAL COURSE: The patient's settled the patient and she wanted him to stay in [place]. The patient presented himself appropriately and he was refusing to take any medications in the beginning of his treatment and 5250 hold were upheld. The patient later on agreed to take Remeron. The patient was alert and oriented to time, place, person and situation. He also was able to provide information with regard to supplying and foods and also his memory was fair and was no basis for grave disability because he has also restarted to take his Remeron. The patient was not suicidal or homicidal. I talked with the patient's multiple times as well as trying to get in touch with his 2 daughters. A family meeting is marked. The patient's agreed and to take the patient home. Initially he ____ to take his medications and the patient was discharged from the hospital. Physical exam of the patient was basically within normal. The patient with no major medical issues while in the hospital. Blood workup was also basically within normal. AFTER DISCHARGE PLAN: The patient discharged from the hospital with plans to continue his treatment as an outpatient. The patient was given appointment to see me in my office on 06/02/2018, 3 p.m. EXPECTED OUTCOME AFTER DISCHARGE: Fair if the patient continues with his outpatient treatment and continue to take his psychotropic medications. JOB# [id number]
== END 2018-05-29 16:20 | disposition home or self-care (01) | DRG 885 ==
LOC: ER 13:49 → GERO 17:00
PROVIDERS: ADMIT Psychiatry & Neurology Psychiatry; ATTEND Psychiatry & Neurology Psychiatry
DX: F31.64 Bipolar disorder, current episode mixed, severe, with psychotic features (principal); N39.0 Urinary tract infection, site not specified; I48.91 Unspecified atrial fibrillation; I45.10 Unspecified right bundle-branch block; I44.4 Left anterior fascicular block
CPT/HCPCS: 36415-UA; 80053-TC; 80061-TC; 80307; 80320-TC; 81001-TC; 83036-90; 83735-TC; 84100-TC; 84443-TC; 84484-TC; 85025-TC; 87086-90; 93005; J2543